=== PATIENT | male | born 1950 | race Caucasian/White ===

== ENCOUNTER 2020-01-26 11:06 | Emergency (ER) | payer BC, OTHER ==
--- OUTSIDE RECORDS SUMMARY | 2020-01-26 11:09 | XMS REPORT | Clinical Summary ---
:1950 Author Organization [facility] Address [address] [place] [address] Care Team Providers Name Role Phone BudMerlinepanchoJaime Primary Care Provider Unavailable Allergies No Known Active Allergies Medications Medication Sig Dispensed Refills Start Date End Date Status escitalopram (LEXAPRO) Take 10 mg by 0 09/22/2015 Active 20 MG tablet mouth daily. metoprolol succinate Take 50 mg by 0 09/22/2015 Active XL (TOPROL-XL) 50 MG mouth daily. 24 hr tablet zolpidem (AMBIEN) 10 Take 10 mg by 0 10/03/2015 Active mg tablet mouth nightly as needed for sleep. donepezil (ARICEPT) 23 Take 23 mg by 0 Active mg tablet mouth daily. levothyroxine Take 100 mcg by 0 Active (SYNTHROID, LEVOXYL) mouth daily. 100 mcg tablet pravastatin Take 20 mg by 0 Acti ve (PRAVACHOL) 20 MG mouth daily. tablet amLODIPine (NORVASC) Take 10 mg by 0 Active 10 mg tablet mouth daily. meloxicam (MOBIC) 7.5 Take 7.5 mg by 0 Active mg tablet mouth daily. baclofen (LIORESAL) 10 Take 10 mg by 0 Active MG tablet mouth 3 (three) times a day. dicyclomine (BENTYL) Take 1 tablet 20 tablet 0 01/26/201904/2018 20 mg tablet (20 mg total) by mouth 2 (two) times a day for 10 days. ondansetron (ZOFRAN) 4 Take 1 tablet 20 tablet 0 01/26/2019 MG tablet (4 mg total) by mouth every 6 (six) hours for 5 days. Active Problems Problem Noted Date Osteochondral defect of talus 07/01/2016 Left knee pain 11/27/2015 Encounters Date Type Specialty Care Team Description 01/26/2019 Emergency Emergency Medicine Rehrer, Chevy Right low er quadrant abdominal pain (Primary Dx); DO Pete Crohn's disease without complication, unspecified gastrointestinal tract location (HCC); Chronic kidney disease, unspecified CKD stage after 01/25/2019 Surgical History Surgery Date Site/Laterality Comments KNEE ARTHROSCOPY 03/07/2010 Left - 03/06/20 11 SHOULDER ARTHROSCOPY 03/07/2009 Left - 03/06/20 10 CARDIAC PACEMAKER PLACEMENT BACK SURGERY ESOPHAGOGASTRODUODENOSCOPY 08/09/2017 N/A Proce dure: (EGD) ESOPHAGOGASTRODU ODENOSCOPY (EGD); Surgeon: Navid You MD; Location: [facility]; Service: Gastroenterology ; Laterality: N/A; errosive g astritis and hiatal hernia COLONOSCOPY 08/09/2017 N/A Procedure: COLON OSCOPY; Surgeon: Navid khanna MD; Location: [facility]; Service: Gastroe nterology; Laterality: N/A; iliitis , diverticulosis ANKLE SURGERY COLONOSCOPY N/A Procedure: COLON OSCOPY; 9 Surgeon: Navid Alcaraz MD; Location: [facility]; Service: Gastro enterology; Laterality: N/A; dd Medical History Medical History Date Comments Depression Hypertension Disease of thyroid gland GERD (gastroesophageal reflux disease) Insomnia Dementia (HCC) Hyperlipidemia Crohn's colitis (HCC) PTSD (post-traumatic stress disorder) Bradycardia Social History Tobacco Use Types Packs/Day Years Used Date Never Smoker Smokeless Tobacco: Never Used Alcohol Use Drinks/Week oz/Week Comments Yes SOCIALLY Sex Assigned at Date Recorded Not on file Last Filed Vital Signs Vital Sign Reading Time Taken Comments Blood Pressure 123/79 01/26/2019 1:17 PM PATTERN ROOM ATTENDANT Pulse 60 01/26/2019 1:17 PM PATTERN ROOM ATTENDANT Temperature 36.6 C (97.8 F) 01/26/2019 1:17 PM PATTERN ROOM ATTENDANT Respiratory Rate 16 01/26/2019 1:17 PM PATTERN ROOM ATTENDANT Oxygen Saturation 96% 01/26/2019 1:17 PM PATTERN ROOM ATTENDANT Inhaled Oxygen Concentration - - Weight 90.7 kg (200 lb) 01/26/2019 1:16 PM PATTERN ROOM ATTENDANT Height 172.7 cm (5' 8") 01/26/2019 1:16 PM PATTERN ROOM ATTENDANT Body Mass Index 30.41 01/26/2019 1:16 PM PATTERN ROOM ATTENDANT Plan of Treatment Health Maintenance Due Date Last Done Comments COLONOSCOPY SCREENING 02/02/2002 SHINGLES VACCINES (#1) 02/02/2002 65+ PNEUMOCOCCAL VACCINE (1 of 1 - PPSV23) 02/02/2017 INFLUENZA VACCINE 10/06/2019 Procedures Procedure Name Priority Date/Time Associated Comments Diagnosis CT ABDOMEN PELVIS W STAT 01/26/2019 5:00 Resu lts for this CONTRAST PM PATTERN ROOM ATTENDANT procedure are i n the results section. LACTIC ACID LEVEL, Timed 01/26/2019 4:30 Resul ts for this SEPSIS - NOW AND PM PATTERN ROOM ATTENDANT procedure a re in REPEAT 2X EVERY 3 the result s HOURS section. URINALYSIS SCREEN AND STAT 01/26/2019 4:22 Re sults for this MICROSCOPY, WITH PM PATTERN ROOM ATTENDANT procedure a re in REFLEX TO CULTURE the result s section. URINE CULTURE STAT 01/26/2019 4:22 Results fo r this PM PATTERN ROOM ATTENDANT procedure are i n the results section. ESTIMATED GFR STAT 01/26/2019 1:50 Results fo r this PM PATTERN ROOM ATTENDANT procedure are i n the results section. LACTIC ACID LEVEL, STAT 01/26/2019 1:50 Resul ts for this SEPSIS - NOW AND PM PATTERN ROOM ATTENDANT procedure a re in REPEAT 2X EVERY 3 the result s HOURS section. LIPASE LEVEL STAT 01/26/2019 1:50 Results for this PM PATTERN ROOM ATTENDANT procedure are i n the results section. COMPREHENSIVE STAT 01/26/2019 1:50 Results fo r this METABOLIC PANEL PM PATTERN ROOM ATTENDANT procedure ar e in the results section. HC COMPLETE BLD COUNT STAT 01/26/2019 1:50 Re sults for this W/AUTO DIFF PM PATTERN ROOM ATTENDANT procedure are i n the results section. after 01/25/[address] Abdomen Pelvis W Contrast (01/26/2019 5:00 PM PATTERN ROOM ATTENDANT) Specimen Narrative Performed At EXAMINATION: CT ABDOMEN PELVIS W CONTR AST HM RADIANT CLINICAL HISTORY: 68 years Male Abd pain unspecified , Nausea vomiting TECHNIQUE: Multiple axial images of the abdomen and pe lvis were obtained following intravenous administration of iodinated cont rast. Sagittal and coronal computerized reformatted images were also obta ined. CT imaging was performed with iterative reconstruction techniques and/or automated exposure co ntrol to reduce radiation dose. COMPARISON: CT from 10/31/2017 IMPRESSION: LUNG BASES: The lung bases are free of acute disease. Coronary art stefano calcification present. Pacer leads are present in the right atrium a nd right ventricle. ABDOMEN: Liver: The liver is normal. No focal mas s. Gallbladder/Biliary: The gallbladder is normal. There is no evidence of intra or extrahepatic biliary ductal dil atation. Spleen: The spleen is enlarged measuring 15 cm in length. Pancreas: Pancreas is unremarkable. Adrenal Glands: The adrenal glands are u nremarkable. Kidneys: The kidneys are unremarkable. No mass, hydron ephrosis or calculi. Vascular: There is mild atherosclerotic calcification of the abdominal aorta without aneurysm. Nodes: No enlarged retroperitoneal or me senteric lymphadenopathy. Bowel: There are scattered diverticula throughout the colon. There is no evidence of acute diverticulitis. Appendix is normal. No intestinal obstruction. Ascites/fluid collections: No ascites or fluid collections. PELVIS: Genitourinary: Prostate is enlarged and mildly elevate s the base of the bladder. The bladder is otherwise unrema rkable. Nodes: No pelvic sidewall lymphadenopath y. Ascites/other: No pelvic ascites. MUSCULOSKELETAL: Visualized osseous structures are intact. No suspiciou s osseous lesion identified. SUMMARY: 1.[id number] diffuse colonic diverticulosis with out evidence of diverticulitis. 2.Mild splenomegaly. 3.Enlarged prostate gland. Procedure Note Hm Interface, Radiology Results Incoming - 01/26/2019 5:13 PM PATTERN ROOM ATTENDANT EXAMINATION: CT ABDOMEN PELVIS W CONTRAST CLINICAL HISTORY: 68 years Male Abd pain unspecified, Nausea vomiting TECHNIQUE: Multiple axial images of the abdomen and pelvis were obtained following intravenous administration of iodinated contrast. Sagittal and coronal computerized reformatted images were also obtained. CT imaging was performed with iterative reconstruction techniques and/or automat ed exposure control to reduce radiation dose. COMPARISON: CT from 10/31/2017 IMPRESSION: LUNG BASES: The lung bases are free of acute disease . Coronary artery calcification present. Pacer leads are present in the right atrium and right ventricle. ABDOMEN: Liver: The liver is normal. No focal mas s. Gallbladder/Biliary: The gallbladder is normal. There is no evidence of intra or extrahepatic biliary ductal dilatation. Spleen: The spleen is enlarged measuring 15 cm in length. Pancreas: Pancreas is unremarkable. Adrenal Glands: The adrenal glands are u nremarkable. Kidneys: The kidneys are unremarkable. N o mass, hydronephrosis or calculi. Vascular: There is mild atherosclerotic calcification of the abdominal aorta without aneurysm. Nodes: No enlarged retroperitoneal or me senteric lymphadenopathy. Bowel: There are scattered diverticula t hroughout the colon. There is no evidence of acute diverticulitis. Appendix is normal. No intestinal obstruction. Ascites/fluid collections: No ascites or fluid collections. PELVIS: Genitourinary: Prostate is enlarged and mildly elevates the base of the bladder. The bladder is otherwise unremarkable. Nodes: No pelvic sidewall lymphadenopath y. Ascites/other: No pelvic ascites. MUSCULOSKELETAL: Visualized osseous structures are intact . No suspicious osseous lesion identified. SUMMARY: 1.Cqwx-aj-obohdejo diffuse colonic diver ticulosis without evidence of diverticulitis. 2.Mild splenomegaly. 3.Enlarged prostate gland. Performing Organization Address [facility] Phon e Number [facility] [address] [place] [address] Lactic acid level, SEPSIS - Now and repeat 2x every 3 hours (01/26/2019 4:30 PM PATTERN ROOM ATTENDANT)Only the most recent of2 resultswithin the time period is included. Pathologist [facility] nature Lactic acid 1.4 0.5 - 2.2 mmol/L [facility] Specimen Blood Performing Organization Address City/[facility] Phon e Number [facility] DEPARTMENT OF PATHOLOGY AND [address] [place] [phone] GENOMIC MEDICINE [address] [address] Urinalysis screen and microscopy, with reflex to culture (01/26/2019 4:22 PM PATTERN ROOM ATTENDANT) Specimen site Clean catch [facility] Color, UA Yellow [facility] Appearance, UA Clear [facility] Specific gravity, UA 1.020 1.001 - 1.035 [facility] pH, UA 5.0 5.0 - 8.5 [facility] Protein, UA Negative Negative [facility] Glucose, UA Negative Negative [facility] Ketones, UA Negative Negative [facility] Bilirubin, UA Negative Negative [facility] Blood, UA Negative Negative [facility] Nitrite, UA Negative Negative [facility] Urobilinogen, UA <2.0 <2.0 [facility] Leukocyte esterase, Negative Negative [facility] Epithelial cells, UA <1 /HPF [facility] WBC, UA 1 0 - 1 /HPF [facility] RBC, UA 3 0 - 5 /HPF [facility] Bacteria, UA Few None seen [facility] Yeast, UA None seen [facility] Yeast with None seen [facility] pseudohyphae, UA HOSPITAL Specimen Urine Performing Organization Address City/[facility]/ZIP Code Phon e Number [facility] DEPARTMENT OF PATHOLOGY AND [address] [place] [address] [phone] [address] Urine culture (01/26/2019 4:22 PM PATTERN ROOM ATTENDANT) Pathologist Sig nature Urine culture SEE COMMENTComment: [facility] Bacteriuria screen HOSPITAL negative. Specimen Performing Organization Address City/[facility] Phon e Number [facility] DEPARTMENT OF PATHOLOGY AND [address] [place], [place] [phone] [address] [address] Estimated GFR (01/26/2019 1:50 PM PATTERN ROOM ATTENDANT) Estimated GFR 54 (A) mL/min/1.73 [facility] Comment: HOSPITAL Catergory Units Interpretation G1 >=90 Normal or high G2 60-89 Mildly decreased G3a 45-59 Mildly to moderately decreas ed G3b 30-44 Moderately to severely decre ased G4 15-29 Severely decreased G5 <15 Kidney failure The eGFR was calculated using the Chronic Kidney Disea se Epidemiology Collaboration (CKD-EPI) equation. Interpretation is based on recommendations of the National Kidney Foundation-Kidney Disease Outcomes Medardo lity Initiative (NKF-KDOQI) published in 2014. Specimen Plasma specimen Performing Organization Address City/[facility] Phon e Number [facility] DEPARTMENT OF PATHOLOGY AND [address] [place], [place] [phone] [address] [address] CBC with platelet and differential (01/26/2019 1:50 PM PATTERN ROOM ATTENDANT) WBC 7.71 4.50 - 11.00 [facility] RBC 5.50 4.40 - 6.00 [facility] HGB 16.3 14.0 - 18.0 [facility] g/dL [facility] HCT 48.7 41.0 - 51.0 % [facility] MCV 88.5 82.0 - 100.0 [facility] MCH 29.6 27.0 - 34.0 pg [facility] MCHC 33.5 31.0 - 37.0 [facility] g/dL HOSPITAL RDW - SD 40.2 37.0 - 55.0 fL [facility] MPV 11.3 8.8 - 13.2 fL [facility] Platelet count 253 150 - 400 k/uL [facility] Nucleated RBC 0.00 /100 WBC [facility] Neutrophils 67.9 39.0 - 69.0 % [facility] Lymphocytes 20.4 (L) 25.0 - 45.0 % [facility] Monocytes 9.3 0.0 - 10.0 % [facility] Eosinophils 1.4 0.0 - 5.0 % [facility] Basophils 0.6 0.0 - 1.0 % [facility] Immature granulocytes 0.4Comment: 0.0 - 1.0 % [facility] "[facility] granulocytes" (promyelocytes , myelocytes, metamyelocytes ) Specimen Blood Performing Organization Address City/[facility] Phon e Number [facility] DEPARTMENT OF PATHOLOGY AND [address] [place], [place] [phone] [address] [address] Lipase level (01/26/2019 1:50 PM PATTERN ROOM ATTENDANT) Pathologist Sig nature Lipase 38 13 - 60 U/L [facility] Specimen Plasma specimen Performing Organization Address City/[facility] Phon e Number [facility] DEPARTMENT OF PATHOLOGY AND [address] [place] [address] [phone] [address] Comprehensive metabolic panel (01/26/2019 1:50 PM PATTERN ROOM ATTENDANT) Sodium 139 135 - 148 [facility] mEq/L [facility] Potassium 3.9 3.5 - 5.0 [facility] mEq/L [facility] Chloride 102 98 - 112 mEq/L [facility] CO2 24 24 - 31 mEq/L [facility] Anion gap 13@ANIO 7 - 15 mEq/L [facility] BUN 11 8 - 23 mg/dL [facility] Creatinine 1.34 (H) 0.70 - 1.20 [facility] mg/dL HOSPITAL Glucose 90 65 - 99 mg/dL [facility] Calcium 9.0 8.8 - 10.2 [facility] mg/dL HOSPITAL Protein 8.0 6.3 - 8.3 g/dL [facility] Comment: HOSPITAL Ozhgrir2920.6-7.0 g/dL 1 aayk2914.4-7.6 g/dL 7 months-4jinr398.1-7.3 g/dL 1-2 jpudw093.6-7.5 g/dL >3 slakc142.0-8.0 g/dL 18-4240998.3-8.3 g/dL Albumin 3.9 3.5 - 5.0 g/dL [facility] A/G ratio 1.0 0.7 - 3.8 [facility] Alkaline phosphatase 75 40 - 129 U/L [facility] AST 25 10 - 50 U/L [facility] ALT 23 5 - 50 U/L [facility] Total bilirubin 0.9 0.0 - 1.2 [facility] mg/dL HOSPITAL Specimen Plasma specimen Performing Organization Address City/State/[facility] Code Phon e Number 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
--- OUTSIDE RECORDS SUMMARY | 2020-01-26 11:10 | XMS REPORT | Summary of Care ---
:1950 Author Name [facility] Address Unavailable Unavailable , Care Team Providers Name Role Phone DAVID Mosqueda Unavailable Unavailable MARÍA Mosqueda Unavailable Unavailable KIAH Mosqueda Unavailable Unavailable KIAH ADAME Unavailable Unavailable DAVID ADAME UT Unavailable Unavailable JOSE ELIAS ADAME Unavailable Unavailable MARK ADAME UT Unavailable Unavailable Unavailable Unavailable Unavailable Functional Status Name Dates Details Functional status health issues are not documented Status: Name Dates Details Cognitive status health issues are not documented Status: Problems Name Dates Details Hypercholesterolemia (272.0, E78.00) Sta tus: Active Left carotid bruit (785.9, R09.89) Statu s: Active Acute stress disorder (308.3, F43.0) Sta tus: Active Chest pain (786.50, R07.9) Status: Activ e Shortness of breath (786.05, R06.02) Sta tus: Active Ventricular tachycardia (427.1, I47.2) S tatus: Active 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, 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) Stat us: Active Sleep disturbances (780.50, G47.9) Statu s: Active Grieving (309.0, F43.21) Status: Active Obstructive sleep apnea (327.23, G47.33) Status: Active Acute stress disorder (308.3, F43.0) Sta tus: Active Insomnia (780.52, G47.00) Status: Active Mood disorder (296.90, F39) Status: Acti ve Memory deficits (780.93, R41.3) Status: Active Post traumatic stress disorder (PTSD) (309.81, F43.10) Status: Active 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 Refills: 0 ELIAZAR DANIEL M.D. Start : 24-Dec-2013 Active amLODIPine Besylate 10 MG Oral Tablet TAKE 0.5 TABLET Before meals Refills: 0 Active Irbesartan 75 MG Oral Tablet TAKE ONE TABLET BY MOUTH EVERY DAY Quantity: 30 Refills: 0 MALA HERNANDEZ M.D. Start : 16-Sep-2014 Active Metoprolol Succinate ER 50 MG Oral Tablet Extended Release 24 Hour TAKE ONE TABLET BY MOUTH ONCE DAILY Quantity: 90 Refills: 3 MALA HERNANDEZ M.D. Start : 03-Jun-2015 Active Tamsulosin HCl - 0.4 MG Oral Capsule TAKE 1 CAPSULE DAILY Refills: 0 Start : 04-Sep-2015 Active Levothyroxine Sodium 88 MCG Oral Tablet Refills: 0 Active Escitalopram Oxalate 20 MG Oral Tablet TAKE 1 TABLET BY MOUTH DAILY Quantity: 30 Refills: 5 KAYLA DUPONT M.D.Active Cyanocobalamin 1000 MCG/ML Injection Solution INJECT 1 ML INTRAMUSCULARLY ONCE A MONTH Quantity: 3 Refills: 1 KAYLA DUPONT M.D. Start : 20-Jun-2018 Active Donepezil HCl - 23 MG Oral Tablet TAKE 1 TABLET BEDTIME Quantity: 30 Refills: 4 KAYLA DUPONT M.D. Start : 09-Jun-2017 Active Allergies and Adverse Reactions Name Dates Details No Known Drug Allergies (Allergy) Status : Active Procedures Procedure Dates Details Procedures not documented Immunization Name Dates Details Immunizations not documented Social History Name Dates Details - Status: Name Dates Details Never smoked tobacco (finding) Vital Signs Date Test Result Details [id number] Systolic blood pressure 124 mm[Hg] Status: Comments: Location: LUE; Position: Sitting Diastolic blood pressure 87 mm[Hg] Status: Comment s: Location: LUE; Position: Sitting Body height 68 in Status: Weight 210.25 lb Status: Body mass index (BMI) [Ratio] 31.97 kg/m2 Status: Body surface area Derived from formula 2.09 m2 S tatus: Body temperature 97.6 f Status: Comments: Me thod: Tympanic Heart Rate 69 /min Status: Comments: Lo cation: L Radial; Results Date Description Value Details Results not documented Plan of Care Name Dates Details Planned Observations Planned Goals not documented Planned Encounters Appointment; MALA HERNANDEZ M.D. On: 27-Oct-2020 12 :20 Instructions Name Dates Details Instructions not documented Encounters Appointment; KAYLA DUPONT M.D. On: 22-Feb-2018 10:0 0 Encounter Diagnosis: Problem not documented Appointment; MALA HERNANDEZ M.D. On: 24-Feb-2018 13 :00 Encounter Diagnosis: Problem not documented Appointment; KAYLA DUPONT M.D. On: 14-Jun-2018 14:3 0 Encounter Diagnosis: Problem not documented Appointment; VIJAY FREGOSO, PHD On: 02-Nov-2018 8 :30 Encounter Diagnosis: Problem not documented Appointment; KAYLA DUPONT M.D. On: 30-Nov-2018 14:3 0 Encounter Diagnosis: Problem not documented Appointment; MALA HERNANDEZ M.D. On: 05-Feb-2019 16: 20 Encounter Diagnosis: Problem not documented Appointment; NETTA MOCTEZUMA M.D. On: 06-Mar-2019 9: 15 Encounter Diagnosis: Problem not documented Appointment; NETTA MOCTEZUMA M.D. On: 28-Mar-2019 15 :15 Encounter Diagnosis: Problem not documented Appointment; MALA HERNANDEZ M.D. On: 29-Oct-2019 16 :00 Encounter Diagnosis: Problem not documented
--- OUTSIDE RECORDS SUMMARY | 2020-01-26 11:10 | XMS REPORT | Continuity of Care Document ---
:1950 Author Organization [facility] t Address [address] [place] [address] Care Team Providers Name Role Phone AUNDREA Primary Care Physician Unavailable DAVID Attending Clinician Unavailable BRENDAN Attending Clinician Unavailable Aundrea ADAME Attending Clinician AUNDREA Attending Clinician Unavailable Felipe MILLER, E Attending Clinician Unavailable Julia Pandey MD Attending Clinician Joyce ADAME Attending Clinician JOSE ELIAS Attending Clinician Unavailable DanisrePete torres DO Attending Clinician KIAH Attending Clinician Unavailable ILDEFONSO Attending Clinician Unavailable Payers Payer Name Policy Type Policy Effective Date Expiration Date Sour ce Number MEDICARE PART A AND B [id number] 2010 00:00:[place] [id number] 2018 2019 00:00:00 00:00:00 MEDICAREMEDICARE PART [id number] 2010 Reynaldo Pickard AND 00:00:00 Yazidi [id number] 2010- MARIA G Richmond[place] OUT OF [id number] 2015 [id number] 7 00:00:00 Met ramos 2015-PPO Problems Condition Condition Condition Status Onset Resolution Last Treating Co mments Source Name Details Category Date Date Treatment Clinician Date Osteochond Osteochond Disease Active [place]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 4-27 Me [place] [facility] 00 Left knee Left knee Disease Active Hans ston pain pain 9- Methodi 00:00: st 00 Hyperchole Hyperchole Problem Active U nivers sterolemia sterolemia it y of [place] Physici ans Left Left Problem Active Univers carotid carotid ity of bruit bruit [place] [facility] Acute Acute Problem Active Univers stress stress ity of disorder disorder [place] [facility] Chest pain Chest pain Problem Active U nivers ity of [place] [facility] Shortness Shortness Problem Active Uni vers of breath of breath ity of [place] [facility]ici [facility] Ventricula Ventricula Problem Active U nivers r r ity of tachycardi tachycardi [place] Physici ans Intracrani Intracrani Problem Active U nivers al abscess al abscess it y of [place] [facility] Sleep Sleep Problem Active Univers disturbanc disturbanc it y of es es [place] [facility] Grieving Grieving Problem Active Unive rs ity of [place] Physici [facility] Obstructiv Obstructiv Problem Active U nivers e sleep e sleep ity of apnea apnea [place] [facility] Insomnia Insomnia Problem Active Unive rs [place]y of [place] [facility] Mood Mood Problem Active Univers disorder disorder [facility] of [place] [facility] Memory Memory Problem Active Univers deficits deficits [facility]y of [place] [facility] Post Post Problem Active Univers traumatic traumatic ity of stress stress [place] disorder disorder Physic i (PTSD) (PTSD) ans 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 ity of [place] [facility] Vitamin Vitamin Problem Active Univers B12 B12 [place] of deficiency deficiency [place] [facility] 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 Social History Social Habit Start Date Stop Date Quantity Comments Source Sex Assigned At M MD Delong on Tobacco use and 2019-06-27 2019-06-27 Never used MD Delong on exposure 00:00:00 00:00:00 Alcohol intake 2019-06-27 2019-06-27 Current drinker MD Sultana bee 00:00:00 00:00:00 of alcohol (finding) Alcohol Comment 2019-06-27 2019-06-27 1-2 times a week MD Barrera 00:00:00 00:00:00 Smoking Status Start Date Stop Date Source Never smoker MD Barrera Medications Ordered Filled Start Stop Current Ordering Indication Dosage Frequency Signature Comments Components Source Medication Medication Date Date Medication? Clinician (SIG) Name Name levothyroxi Yes 100ug Take 100 M D ne 4-22 mcg by Anderso (SYNTHROID, 13:46: mouth. n LEVOTHROID) 17 100 mcg tablet olmesartan Yes 20mg Take 20 mg M D (BENICAR) 06-26 by mouth Baljeet o 20 mg 13:46: daily. n tablet 17 fluorouraci 2020- No Actinic Apply M D l (Efudex) 06-26 05-07 keratosis topically Anderso 5% cream 00:00: 04:59 to n 00 :00 affected area(s) twice daily for 14 days. Use on the scalp and forehead dicyclomine 2018-03- No 20mg Q.5D Take 1 [place] (BENTYL) 20 - 12-02 tablet (20 M ethodi mg tablet 00:00: 23:59 mg total) st 00 :00 by mouth 2 (two) times a day for 10 days. ondansetron 2018-03- No 4mg Q6H Take 1 [place] (ZOFRAN) 4 03-28 11-27 tablet (4 Met hodi MG tablet 00:00: 23:59 mg total) st 00 :00 by mouth every 6 (six) hours for 5 days. amLODIPine Yes 5mg 5 mg. (NORVASC) 8- Anderso 10 mg 00:00: n tablet 00 donepezil 2018- Yes 23mg QD Take 23 mg [place] (ARICEPT) 7-26 by mouth Method i 23 mg 16:58: daily. st tablet 23 levothyroxi 2018- Yes 100ug QD Take 100 [place] ne 7-26 mcg by Methodi (SYNTHROID, 16:58: mouth st LEVOXYL) 23 daily. 100 mcg tablet pravastatin Yes 20mg QD Take 20 mg Singletary (PRAVACHOL) 7-26 by mouth Meth alyssa 20 MG 16:58: daily. st tablet 23 amLODIPine Yes 10mg QD Take 10 mg [place] (NORVASC) 7-26 by mouth Method i 10 mg 16:58: daily. st tablet 23 meloxicam Yes 7.5mg QD Take 7.5 [place] (MOBIC) 7.5 7-26 mg by Methodi mg tablet 16:58: mouth st 23 daily. baclofen Yes 10mg [id number] Take 10 mg Singlet[place] (LIORESAL) 7-26 [id number] by mouth 3 Methodi 10 MG 16:58: 3D (three) st tablet 23 times a day. Cyanocobala Cyanocobala Yes KAYLA INJECT 1 Univers min 1000 min 1000 4-16 DUPONT M.D. ML i ty of MCG/ML MCG/ML 00:00: INTRAMUSCU [place] as Injection Injection 00 LARLY ONCE Physici Solution Solution A MONTH ans Donepezil Donepezil Yes KAYLA 1 TAKE 1 Univers HCl - 23 MG HCl - 23 MG 4-05 DUPONT M.D. TABLET ity of Oral Tablet Oral Tablet 00:00: BEDTIME [place] 00 Physici ans zolpidem Yes 10mg QD Take 10 mg [place] (AMBIEN) 10 7-29 by mouth Meth alyssa mg tablet 00:00: nightly as st 00 needed for sleep. escitalopra Yes 10mg QD Take 10 mg Singletary m (LEXAPRO) 7-18 by mouth Meth alyssa 20 MG 00:00: daily. st tablet 00 metoprolol Yes 50mg QD Take 50 mg [place] succinate 7-18 by mouth Method i XL 00:00: daily. st (TOPROL-XL) 00 50 MG 24 hr tablet metoprolol Yes 50mg Take 50 mg M D succinate 7-18 by mouth. Nirva so (TOPROL XL) 00:00: n 50 mg 24 hr 00 tablet Tamsulosin Tamsulosin Yes 1 QD TAKE 1 Univers HCl - 0.4 HCl - 0.4 6-30 CAPSULE it y of MG Oral MG Oral 00:00: DAILY [place] Capsule Capsule 00 Physici ans Metoprolol Metoprolol Yes MALA TAKE ONE Univers Succinate Succinate 3-29 HERNANDEZ TABLET BY ity of ER 50 MG ER 50 MG 00:00: M.D. MOUTH ONCE [place] Oral Tablet Oral Tablet 00 DAILY Physici Extended Extended ans Release 24 Release 24 Hour Hour Irbesartan Irbesartan Yes MALA QD TAKE ONE Univers 75 MG Oral 75 MG Oral 7-13 HERNANDEZ TABLET BY ity of Tablet Tablet 00:00: M.D. MOUTH [place] 00 EVERY DAY Physici ans zolpidem Yes 10mg Take 10 mg MD (AMBIEN) 10 4-01 by mouth. And erso mg tablet 00:00: n 00 Zolpidem Zolpidem 2013-03 Yes ELIAZAR DANIEL TAKE 1 Univers Tartrate 10 Tartrate 10 0-20 M.D. TABLET AT ity of MG Oral MG Oral 00:00: BEDTIME. [place] as Tablet Tablet 00 Physici ans amLODIPine amLODIPine Yes .5 TAKE 0.5 Univers Besylate 10 Besylate 10 TABLET ity of MG Oral MG Oral Before [place] Tablet Tablet meals Physici ans Levothyroxi Levothyroxi Yes U nivers ne Sodium ne Sodium ity o f 88 MCG Oral 88 MCG Oral [place] Tablet Tablet Physici ans Escitalopra Escitalopra Yes KAYLA TAKE 1 Univers m Oxalate m Oxalate DUP[place] M.D. TABLET BY ity of 20 MG Oral 20 MG Oral MOUTH [place] Tablet Tablet DAILY Physici ans Vital Signs Vital Name Observation Time Observation Value Comments Source Systolic blood 2019-10-29 124 mm[Hg] Location: [facility] 16::00 Position: [place] Physician s Sitting Diastolic blood 2019-10-29 87 mm[Hg] Location: [facility] 16::00 Position: [place] Physician s Sitting Body height 2019-10-29 68 [in_us] [facility] :: [place] Physician s Weight 2019-10-29 210.25 [lb_av] [facility] :: [place] Physician s Body mass index 2019-10-29 31.97 kg/m2 [place] o f (BMI) [Ratio] 16::00 Lisette Philip Body temperature 2019-10-29 97.6 [degF] Method: [facility] 16:01:00 Tympanic [place] Physician s Heart Rate 2019-10-29 69 /min Location: [facility] 16:01:00 Radial; [place] Physician s Systolic blood 2019-06-27 142 mm[Hg] MD Barrera pressure 15:40:33 Diastolic blood 2019-06-27 91 mm[Hg] MD Barrera pressure 15:40:33 Heart rate 2019-06-27 59 /min MD Barrera 15:40:33 Body temperature 2019-06-27 36.39 Rachael MD Barrera 15:40:33 Respiratory rate 2019-06-27 16 /min MD Barrera 15:40:33 Oxygen saturation 2019-06-27 95 /min MD Akanksha riley in Arterial blood 15:40:33 by Pulse oximetry Body height 2019-06-27 170.5 cm MD Barrera 13:38:44 Body weight 2019-06-27 95.3 kg MD Barrera 13:38:44 BMI 2019-06-27 32.78 kg/m2 MD Barrera 13:38:44 BP Systolic 2019-03-06 123 mm[Hg] Location: [facility] 09:25:00 Position: [place] Physician s Sitting BP Diastolic 2019-03-06 79 mm[Hg] Location: [facility] 09:25:00 Position: [place] Physician s Sitting Height 2019-03-06 68 [in_us] [facility] 09:25:00 [place] Physician s Weight 2019-03-06 197.2 [lb_av] [facility] 09:25:00 [place] Physician s Body Mass Index 2019-03-06 29.98 kg/m2 University o f Calculated 09:25:00 [place] Physician s Temperature 2019-03-06 98.2 [degF] Method: Oral [facility] 09:25:00 [place] Physician s Heart Rate 2019-03-06 67 /min [facility] 09:25:00 [place] Physician s Systolic blood 2019-01-26 123 mm[Hg] [place] pressure 13:17:21 Yazidi Diastolic blood 2019-01-26 79 mm[Hg] [place] pressure 13:17:21 Yazidi Heart rate 2019-01-26 60 /min [place] 13:17:21 Yazidi Body temperature 2019-01-26 36.56 Rachael [place] 13:17:21 Yazidi Respiratory rate 2019-01-26 16 /min [place] 13:17:21 Yazidi Oxygen saturation 2019-01-26 96 /min [place] in Arterial blood 13:17:21 Yazidi by Pulse oximetry Body height 2019-01-26 172.7 cm [place] 13:16:00 Yazidi Body weight 2019-01-26 90.719 kg [place] 13:16:00 Yazidi BMI 2019-01-26 30.41 kg/m2 [place] 13:16:00 Yazidi BP Systolic 2018-11-30 113 mm[Hg] Location: [facility] 14:51:00 Position: [place] Physician s Sitting BP Diastolic 2018-11-30 69 mm[Hg] [facility] 14:51:00 Position: [place] Physician s Sitting Height 2018-11-30 68 [in_us] University 14:51:00 [place] Physician s Weight 2018-11-30 207.6 [lb_av] [facility] 14:51:00 [place] Physician s Body Mass Index 2018-11-30 31.57 kg/m2 University o f Calculated 14:51:00 [place] Physician s Heart Rate 2018-11-30 61 /min [facility] 14:51:00 [place] Physician s Respiration Rate 2018-11-30 17 /min [facility] 14:51:00 [place] Physician s BP Systolic 2017-10-12 120 mm[Hg] [facility] 10:30:00 Position: [place] Physician s Sitting BP Diastolic 2017-10-12 87 mm[Hg] Location: [facility] 10:30:00 Position: [place] Physician s Sitting Height 2017-10-12 68 [in_us] University 10:30:00 [place] Physician s Weight 2017-10-12 206 [lb_av] University 10:30:00 [place] Physician s Body Mass Index 2017-10-12 31.32 kg/m2 University o f Calculated 10:30:00 [place] Physician s Heart Rate 2017-10-12 68 /min University of 10:30:00 [place] Physician s BP Systolic 2017-06-09 123 mm[Hg] University of 10:31:00 [place] Physician s BP Diastolic 2017-06-09 77 mm[Hg] University of 10:31:00 [place] Physician s Height 2017-06-09 68 [in_us] University of 10:31:00 [place] Physician s Weight 2017-06-09 214 [lb_av] University 10:31:00 [place] Physician s Body Mass Index 2017-06-09 32.54 kg/m2 University o f Calculated 10:31:00 [place] Physician s Heart Rate 2017-06-09 62 /min [facility] :31:00 [place] Physician s BP Systolic 2017-02-25 114 mm[Hg] Location: [facility]; [facility] :: Position: [place] Physician s Sitting BP Diastolic 2017-02-25 73 mm[Hg] Location: [facility]; [facility] :: Position: [place] Physician s Sitting Height 2017-02-25 68 [in_us] University 12:31:00 [place] Physician s Weight 2017-02-25 219 [lb_av] University :31:00 [place] Physician s Body Mass Index 2017-02-25 33.3 kg/m2 University o f Calculated 12:31:00 [place] Physician s Heart Rate 2017-02-25 60 /min [facility] :: [place] Physician s Respiration Rate 2017-02-25 18 /min Quality: Normal Universi of 12:31:00 [place] Physician s BP Systolic 2017-02-08 124 mm[Hg] University 09:31:00 [place] Physician s BP Diastolic 2017-02-08 84 mm[Hg] [facility] 09:31:00 [place] Physician s Weight 2017-02-08 210 [lb_av] University 09:31:00 [place] Physician s Body Mass Index 2017-02-08 31.93 kg/m2 University o f Calculated 09:31:00 [place] Physician s Respiration Rate 2017-02-08 18 /min [facility] :31:00 [place] Phys[facility] s Heart Rate 2017-02-08 61 /min [facility] 09:31:00 [place] Phys[facility] s Procedures Procedure Date / Time Performing Clinician Source Performed SURGICAL BIOPSY HISTORIC 2019-06-27 17:00:00 William, MD Barrera Pathology PATHOLOGY BIOPSY SPECIMEN 2019-06-27 14:37:00 Vero Guillaume INTERPRETATION PA MOHS, 1 STAGE, 2019-06-27 13:15:00 Vero Guillaume MD Baljeet on HEAD/NECK/HAND/FEET/GENTI AL OUTSIDE REFERRAL 2019-05-15 00:00:00 System, Provider Not And erson In OUTSIDE REFERRAL HISTORIC 2019-04-23 18:00:00 MD Bruce Thomas Pathology CT ABDOMEN PELVIS W 2019-01-26 17:00:21 Babs Rubio CONTRAST Ololade LACTIC ACID LEVEL, SEPSIS 2019-01-26 16:30:00 Armando Nash - NOW AND REPEAT 2X EVERY 3 HOURS URINE CULTURE 2019-01-26 16:22:00 Armando Nash ethodi URINALYSIS SCREEN AND 2019-01-26 16:22:00 Armando Nash MICROSCOPY, WITH REFLEX TO CULTURE HC COMPLETE BLD COUNT 2019-01-26 13:50:00 Armando Nash W/AUTO DIFF COMPREHENSIVE METABOLIC 2019-01-26 13:50:00 Armando Nash PANEL LIPASE LEVEL 2019-01-26 13:50:00 Armando Nash ethodist LACTIC ACID LEVEL, SEPSIS 2019-01-26 13:50:00 Armando Nash - NOW AND REPEAT 2X EVERY 3 HOURS ESTIMATED GFR 2019-01-26 13:50:[address] Brain wo contrast 2017-02-22 00:00:00 [facility] [id number] Physicians Plan of Care Planned Activity Planned Date Details Comments Source Future Scheduled 2019-10-06 INFLUENZA VACCINE [place] Test 00:00:00 [code = INFLUENZA VACCINE] Diagnostic Test 2017-02-22 CT Brain wo contrast [facility] Pending 00:00:00 [id number] [code = 60860] Physici ans Future Scheduled 2017-02-02 65+ PNEUMOCOCCAL [place] Yazidi Test 00:00:00 VACCINE (1 of 1 - PPSV23) [code = 65+ PNEUMOCOCCAL VACCINE (1 of 1 - PPSV23)] Future Scheduled 2002-02-02 COLONOSCOPY SCREENING jayne Yazidi Test 00:00:00 [code = COLONOSCOPY SCREENING] Future Scheduled 2002-02-02 SHINGLES VACCINES [place] [facility] Test 00:00:00 (#1) [code = SHINGLES VACCINES (#1)] Future Appointment 2020-10-27 Panda MEDEIROS [facility] 12:20:00 Bernarda HERNANDEZ Encounters Start End Encounter Admission Attending Care Care Encounter Source Date/Time Date/Time Type Type Clinicians Facility Department ID 2019-10-29 2019-10-29 Appointmen DYLAN HERNANDEZ Cardiology [id number] [facility] 16:00:00 16:00:00 [facility] [place] Arben Mosqueda ans 2019-10-04 2019-10-04 Outpatient MICHAEL VILLARREAL MDA MDA [id number] 00:00:00 00:00:00 Baljeetjaquan riley 2019-06-27 2019-06-27 Outpatient ANA PAULA GUILLAUME MDA MDA [id number] 08:14:13 08:14:25 VERO riley 2019-03-28 2019-03-28 AppointDYLAN Roche [facility] [id number] Univers 15:15:00 15:15:00 t; NETTA MOCTEZUMA, i ty of [facility] 2019-03-06 2019-03-06 DYLAN Amezcua Otorhinolar [id number] Univers 09:15:00 09:15:00 t; NETTA MOCTEZUMA, yngology - ity of Panda [facility] Physici [facility] 2019-03-04 2019-03-04 Emergency E [facility] [id number] [facility] 12:18:00 12:18:00 2019-02-05 2019-02-05 DYLAN Phelps [facility] [id number] Univers 16:20:00 16:20:00 t; Panda MEDEIROS it y of DAVID [place] Arben MEDEIROS M.D. [facility] 2019-01-21 2019-01-21 Emergency E MHNE MHNE [id number] MHNE 16:32:00 16:32:00 2018-11-30 2018-11-30 DYLAN Aguilar Neurology - [id number] Univers 14:30:00 14:30:00 t; KAYLA DUPONT [place] ity of [place], M.D. [facility] [place] Physic ans 2018-11-02 2018-11-02 DYLAN Barnard [facility] [id number] Univers 08:30:00 08:30:00 t; Marine LINARES, PHD Tenzin Dunn ci PHD ans 2018-06-14 2018-06-14 DYLAN Aguilar Neurology [id number] Univers 14:30:00 14:30:00 t; KAYLA DUPONT ity of [place], M.D. [facility] ans 2018-02-24 2018-02-24 Appointrosa HERNANDEZ [facility] [id number] Univers 13:00:00 13:00:00 t; Panda MEDEIROS [place] DAVID, Physici M.D. ans 2018-02-22 2018-02-22 AppointDYLAN Caputo Neurology [id number] Univers 10:00:00 10:00:00 t; KAYLA DUPONT ity of [place], M.D. [place] Anupam Physici ans 2017-10-12 2017-10-12 AppointDYLAN Caputo Neurology [id number] Univers 10:00:00 10:00:00 t; KAYLA DUPONT ity of [place], M.D. [place] Anupam Physici ans 2017-06-09 2017-06-09 AppointDYLAN Caputo Neurology [id number] Univers 10:00:00 10:00:00 t; KAYLA DUPONT ity of [place], M.D. [place] Brandi Physici ans 2017-02-25 2017-02-25 [facility] [place] [id number] Univers 12:00:00 12:00:00 t; Panda MEDEIROS Specialty [place] Arben MEDEIROS M.D. ans 2017-02-08 2017-02-08 AppointDYLAN Caputo Neurology [id number] Univers 09:30:00 09:30:00 t; KAYLA DUPONT ity of [place], M.D. [place] M.D. Physici ans 2017-02-07 2017-02-07 AppointDYLAN Caputo [facility] [id number] Univers 11:30:00 11:30:00 t; KAYLA DUPONT ity of [place], M.D. [place] M.D. Physici ans 2016-10-07 2016-10-07 AppointDYLAN Caputo [facility] [id number] Univers 15:30:00 15:30:00 t; KAYLA DUPONT ity of [place], M.D. [place] M.D. Physici ans 2015-11-28 2015-11-28 Appointmen DAVID [facility] [id number] Univers 12:40:00 12:40:00 t; Panda MEDEIROS y of DAVID [place] Arben MEDEIROS M.D. ans 2015-10-03 2015-10-03 Appointmen DAVID [facility] [id number] Univers 15:40:00 15:40:00 t; Panda MEDEIROS y of DAVID [place] Arben MEDEIROS M.D. ans 2015-09-04 2015-09-04 [facility] KIAH [facility] Neurology [id number] Univers 10:30:00 10:30:00 t; KAYLA DUPONT ity of [place], M.D. [place] M.D. Physici ans 2015-07-18 2015-07-18 [facility] [id number] Univers 11:40:00 11:40:00 t; Panda MEDEIROS y of [place] HERNANDEZ Physici M.D. ans 2015-04-02 2015-04-02 [facility] [id number] Univers 14:30:00 14:30:00 t; KAYLA DUPONT ity of [place], M.D. [place] Panda Physic ans Results Test Test Test Results Result Source Description Time Comments Comments Mohs-assisted 2019-06- Vero Guillaume MD MD Bruce excision, basal 22 06/28/2019 10:09 AM cell carcinoma, 13:15:00 Mohs-assisted excision, right posterior basal cell carcinoma, neck right posterior neckDate/Time: 06/27/2019 9:35 AM SurgeonAuthorized by: Vero Guillaume MD Performed by: LOBITO Germanupervising Surgeon: Vero Guillaume MD LocationLocation: Right posterior neck DiagnosisPre-operative diagnosis: Basal cell carcinomaBasal cell carcinoma: NodularPost-operative diagnosis: unchangedLesion SizePreoperative size: 1.3 x 1.3 cmPostoperative size (lesion + margin): 1.5 x 1.5 cm StagesTotal number of stages: 1Complete tumor excision achieved: yes Permanent Pathology SubmittedPermanent Pathology Submitted: yes (permanent processing)Permanent processing: Mohs debulk Indications for MohsIndications for Mohs: Poorly defined tumor margins AnesthesiaAnesthesia method: Local infiltrationLocal anesthetic: Lidocaine 1% with epinephrine 1:100,000 (buffered)Anesthetic total (ml): 5Preoperative/Intraoperati ve MedicationsPreop/Intraop medications: See MAR for detailsSurgical PrepSurgical prep: ChlorhexidineProcedure DetailsDuring discussion of the treatment options available, based on the patient's diagnosis, it was explained to the patient that the Mohs procedure was the most appropriate treatment for the patient's lesion. The risks and benefits of the Mohs procedure and repair procedure were explained to the patient. Upon obtaining informed consent, the patient was positioned to achieve maximum access to the operative site. A wide margin surrounding the lesion was prepped and draped in the normal sterile fashion. Local anesthesia was administered. The [place] Protocol was completed. The discernible tumor was excised as a horizontal layer with the Mohs technique. Hemostasis was obtained and patient was bandaged. The tissue was precisely mapped, marked, grossly sectioned and submitted for fresh-frozen, horizontal processing. Hematoxylin and eosin-stained histologic sections were evaluated by the surgeon. This process was repeated until the end of the procedure. Tumor HistologySignificant histologic findings were present in stages 1 through 1 (normal skin). Case: [id number] Stage 1:No tumor was present at the margin of the sections evaluatedTotal number of sections: 1 Procedure Details: Repair Primary repairAfter the risks, benefits, and alternatives to primary and secondary intention healing were discussed with the patient, the patient elected to undergo a primary repair. A primary repair was indicated to restore normal function and tissue contours. Standing cone defects were removed as were appropriate. Intermediate layered linear repairOne or more deeper layers of subcutaneous tissue and superficial (non-muscle) fascia in addition to the skin (epidermal and dermal) closure was performed to create a intermediate layered linear repair.Length of repair: 2.4 cm Repair MaterialsRepair materials: Deep/dermal and superficial/epidermalSutur e size (deep/dermal): 4-0Suture type (deep/dermal): VicrylSuture size (superficial/epidermal): 4-0Other adhesive(s): Cyanoacrylate tissue adhesiveBandageBandage: Pressure dressingEstimated Blood LossEstimated blood loss: Minimal ComplicationsComplications : None Patient DispositionPatient disposition: Discharge to homeDischarge MedicationsDischarge medications: See MAR for detailsCommentsFollow-up with general dermatology. [facility]anda [facility] [id number] [facility], [address] [place] [id number] Urinalysis screen and microscopy, with reflex to culture 11-15-21 17:47:12 Test Item Value Reference Range Interpretation Comme nts Specimen site (test code = 6548182) Clean catch Color, UA (test code = 5778-6) Yellow Appearance, UA (test code = 5767-9) Clear Specific gravity, UA (test code = 5811-5) 1.020 1.001-1.035 pH, UA (test code = 5803-2) 5.0 5.0-8.5 Protein, UA (test code = 40925-9) Negative Negative Glucose, UA (test code = 59970-1) Negative Negative Ketones, UA (test code = 2514-8) Negative Negative Bilirubin, UA (test code = 5770-3) Negative Negative Blood, UA (test code = 5794-3) Negative Negative Nitrite, UA (test code = 5802-4) Negative Negative Urobilinogen, UA (test code = 63197-0) <2.0 <2.0 Leukocyte esterase, UA (test code = 5799-2) Negative Negative Epithelial cells, UA (test code = 5787-7) <1 /HPF WBC, UA (test code = 5821-4) 1 0- 1 /HPF RBC, UA (test code = 09283-4) 3 0- 5 /HPF Bacteria, UA (test code = 90371-4) Few None seen Yeast, UA (test code = 28205-9) None seen Yeast with pseudohyphae, UA (test code = 15884-7) None seen Hayder Landry [id number] 17:28:36 Test Item Value Reference Range Interpretation Comments Urine culture (test SEE COMMENT Bacteriu alejandro screen code = 0718584) negative. Hayder DonahueistLactic acid level, SEPSIS - Now and repeat 2x every 3 hours 2019-01-26 17:10:22 Test Item Value Reference Range Interpretation Comments Lactic acid (test code = 83607-1) 1.4 mmol/L 0.5-2.2 [place] W [id number] 17:09:59Hm Interface, Radiology Results 01/26/2019 5:13 PM CSTEXAMINATION: CT ABDOMEN PELVIS W CONTRASTCLINICAL HISTORY: 68 years Male Abd pain unspecified, Nausea vomitingTECHNIQUE: Multiple axial images of the abdomen and pelvis were obtained following intravenous administration of iodinated contrast. Sagittal and coronal computerized reformatted images were also obtained. CT imaging was performed with iterative reconstruction techniques and/or automated exposure control to reduce radiationdose. COMPARISON: CT from 10/31/2017 IMPRESSION:LUNG BASES:The lung bases are free of acute disease.Coronary artery calcification present. Pacer leads are present in the right atrium and right ventricle.ABDOMEN:Liver: The liver is normal. No focal mass.Gallbladder/Biliary: The gallbladder is normal. There is no evidence of intra or extrahepatic biliary ductal dilatation.Spleen: The spleen is enlarged measuring 15 cm in length. Pancreas: Pancreas is unremarkable.Adrenal Glands: The adrenal glands are unremarkable.Kidneys: The kidneys are unremarkable. No mass, hydronephrosis or calculi.Vascular: There is mild atherosclerotic calcification of the abdominal aorta without aneurysm.Nodes: No enlarged retroperitoneal or mesenteric lymphadenopathy.Bowel: There are scattered diverticula throughout the colon. There is no evidence of acute diverticulitis. Appendix is normal. No intestinal obstruction. Ascites/fluid collections: No ascites or fluid collections.PELVIS:Genitourinary: Prostate is enlarged and mildly elevates the base of the bladder. The bladder is otherwise unremarkable.Nodes: No pelvic scout ewall lymphadenopathy.Ascites/other: No pelvic ascites.MUSCULOSKELETAL: Visualized osseous structures are intact. No suspicious osseous lesion identified.SUMMARY:1.Yvmw-bx-rzycapex diffuse colonic diverticulosis without evidence of diverticulitis.2.Mild splenomegaly.3.Enlarged prostate gland.[facility] [id number] 15:45:10 Test Item Value Reference Range Interpretation Comments Sodium (test code = 139 135- 148 mEq/L 2951-2) Potassium (test code = 3.9 3.5- 5.0 mEq/L 2823-3) Chloride (test code = 102 98- 112 mEq/L 2075-0) CO2 (test code = 2027-) 24 24- 31 mEq/L Anion gap (test code = 13@ANIO 7- 15 mEq/L 38875-7) BUN (test code = 3094-0) 11 mg/dL 8-23 Creatinine (test code = 1.34 mg/dL 0.7-1.2 H 2160-0) Glucose (test code = 90 mg/dL 65-99 2345-7) Calcium (test code = 9.0 mg/dL 8.8-10.2 32347-6) Protein (test code = 8.0 g/dL 6.3-8.3 9994.6-7.0 2885-2) g/dL1 hqjy6838.4-7.6 g/dL7 months-7tjar368 .1- 7.3 g/dL1-2 .6-7.5 g/dL>3 fivow438.0-8.0 g/nT85-2315233. 3-8 .3 g/dL Albumin (test code = 3.9 g/dL 3.5-5 1751-7) A/G ratio (test code = 1.0 0.7-3.8 1759-0) Alkaline phosphatase 75 U/L 40-129 (test code = 6768-6) AST (test code = 1920-8) 25 U/L 10-50 ALT (test code = 1742-6) 23 U/L 5-50 Total bilirubin (test 0.9 mg/dL 0-1.2 code = 1974-) Lab Interpretation (test Abnormal code = 23954-9) [facility] [id number] 15:45:10 Test Item Value Reference Range Interpretation Comments Lipase (test code = 3040-3) 38 U/L 13-60 [facility] MethodistEstimated [id number] 15:45:10 Test Item Value Reference Range Interpretation Comments Estimated GFR (test 54 mL/min/1.73 m2 Neeraj mas Units code = 5488) InterpretationG 1 >=90 Shameka l or highG2 60-89 Mildly decrease dG3a 45-59 Mil dly to moderately decr ryynpD7a 30-44 Moderately to s everely decreasedG4 15-29 Severe ly decreasedG5 <15 Kidney berna lureThe eGFR was calcul ated using the Chron Kidney Disease Epidemiology Collaboration ( CKD-EPI) equation. Interpretation is based on recommendati ons of the National [facility]Kidn ey Disease Outcome s Quality Initiat gino (NKF-KDOQI) pub lished in 2013. Lab Interpretation Abnormal (test code = 69435-2) [facility] MethodistCBC with platelet and [id number] 15:11:55 Test Item Value Reference Range Interpretation Comments WBC (test code = 45895-3) 7.71 4.50- 11.00 k/uL RBC (test code = 10029-1) 5.50 m/uL 4.4-6 HGB (test code = 718-7) 16.3 g/dL 14-18 HCT (test code = 4544-3) 48.7 % 41-51 MCV (test code = 787-2) 88.5 fL 82-100 MCH (test code = 785-6) 29.6 pg 27-34 MCHC (test code = 786-4) 33.5 g/dL 31-37 RDW - SD (test code = 40.2 fL 37-55 34172-5) MPV (test code = 59225-8) 11.3 fL 8.8-13.2 Platelet count (test code 253 150- 400 k/uL = 27269-8) Nucleated RBC (test code 0.00 /100 WBC = 06087-1) Neutrophils (test code = 67.9 % 39-69 31469-6) Lymphocytes (test code = 20.4 % 25-45 L 16337-8) Monocytes (test code = 9.3 % 0-10 85202-9) Eosinophils (test code = 1.4 % 0-5 36481-5) Basophils (test code = 0.6 % 0-1 89688-2) Immature granulocytes 0.4 % 0-1 "Immat ure (test code = 70506-3) granul ocytes" (promyelocytes, myelocytes, metamyelocytes) Lab Interpretation (test Abnormal code = 91882-0) Hayder Yazidi[[facility]] FOLATE, [id number] 16:03:01 Test Item Value Reference Range Interpretation Comments Folate Level (test code = 2284-8) 15.1 ng/ml >=3.0 [facility]] T3 [id number] 16:03:01 Test Item Value Reference Range Interpretation Comments T3 Uptake (test code = 3050-2) 37 % 31-39 [facility]] T4, TOTAL (THYROXINE)2018-06-14 16:03:01 Test Item Value Reference Range Interpretation Comments Thyroxine (test code = 3026-2) 8.8 ug/dL 4.7-13.3 [facility]] TSH, 3RD [id number] 16:03:01 Test Item Value Reference Range Interpretation Comments TSH (test code = 83521-8) 1.490 {uIU/ml} 0.360-3.740 [facility]] VITAMIN [id number] 16:03:01 Test Item Value Reference Range Interpretation Comments Vitamin B12 Level (test code = 391 pg/ml 254-1320 2132-9) [facility][] Free Thyroxine [id number] 16:03:01 Test Item Value Reference Range Interpretation Comments Free Thyroxine Index (test code = 3.3 96535-5) [facility]] HEMOGLOBIN [id number] 16:03:01 Test Item Value Reference Range Interpretation Comments Hemoglobin A1c (test code = 4548-4) 5.4 % <=5.6 [facility]] VITAMIN D, 25-HYDROXY, LC/MS/[id number] 16:03:01 Test Item Value Reference Range Interpretation Comments Vitamin D, 25-OH, 26.9 ng/ml 30.0-100.0 Reference range is based Total (test code on recommen dations in the = Vitamin D, EndocrineSociet y Clinical 25-OH, Total) Practice Guide line (J Clin Endocrinol Fcdwp2935;96:19 11-1930) [facility]] VITAMIN [id number] 16:03:01 Test Item Value Reference Range Interpretation Comments Vitamin B6 6.8 {UG/L} 5.3-46.7 This test was d eveloped and its Level (test performance code = characteristics determined by Vitamin B6 [facility]. It has not been Level) cleared orappro greg by the Food and Drug Administration. Performed At: [facility] [id number] [place], [place] [id number] ra Carlos ADAME Ph:[phone] [facility]] VITAMIN D, 1,25 DIHYDROXY LC/MS/[id number] 16:03:01 Test Item Value Reference Range Interpretation Comments Vitamin D 1,25 (OH)2 38 pg/ml Referen ce Range:Adults: Total (test code = 21 - 65 Vitamin D 1,25 (OH)2 Total) Vitamin D2 1,25 (OH)2 <10 (test code = Vitamin D2 1,25 (OH)2) Vitamin D3 1,25 (OH)2 38 pg/ml Perfor med At: ES (test code = Vitamin Esoteri x [id number] Lost D3 1,25 (OH)2) [place], [place] [id number] paul Isbell MD Ph:[phone] [facility] Brain wo contrast [id number] 07:13:00 Clinical Indication: - G93.0 Cerebral cystsComparison: NoneTECHNIQUE: CT images were obtained from the foramen magnum to the vertexwithout the use of intravenous contrast on a multidetector CT. Coronal andsagittal reconstructions were obtained.CT radiation dose DLP: 1273 mGy-cmFINDINGS: BRAIN PARENCHYMA: There is generalized brain parenchymal atrophy related to thepatient's age. Mild nonspecific periventricular white matter disease changesare noted. Atherosclerotic calcifications are present within the carotidsiphons and distal vertebral arteries. There are no focal mass lesions on thisnoncontrast head CT. There is no mass effect, midline shift or edema. There areno intra-axial or extra-axialfluid collections, intraventricular orintraparenchymal hemorrhage. There is no noncontrast CT evidence of a subacutestroke. The pineal, brainstem, cerebellum and skull base regions appearunremarkable. Previous arachnoid cyst is not present and likely represented aprominent frontal hemispheric sulcus. There is calcification globus pallidus.There is a partial empty sella. There is no cerebellar tonsillar ectopia.VENTRICLES: The lateral ventricles, third and fourth ventricles appearunremarkable. The basilar cisterns are normal.ORBITS, MASTOIDS AND PARANASAL SINUSES: The visualized orbits and paranasalsinuses are unremarkable. The mastoid air cells are clear.SKULL: There are no calvarial abnormalitiesseen.If there is further concern for intracranial pathology or acute stroke, MRI ofthe brain may be performed for complete assessment.IMPRESSION:Chronic age-related and small vessel ischemic changes wit hout mass, hemorrhageor subacute stroke. There is no arachnoid cyst.SL: BBERKOAVA-MADALYN--Read by: Gilson Roland MDDictated Date/time: 03/03/17 08:18Electronically Signed by: Gilson Roland MD 03/03/1708:20FINAL REPORTUnU[facility]] CBC (INCLUDES DIFF/PLT)2017-02-25 12:50:01 Test Item Value Reference Range Interpretation Comments WBC (test code = WBC) 7.4 {K/CMM} 3.7-10.4 RBC (test code = RBC) 5.08 {M/CMM} 4.70-6.10 Hgb (test code = 42046-8) 16.3 g/dl 14.0-18.0 Hct (test code = 4544-3) 47.1 % 42.0-54.0 MCV (test code = MCV) 92.6 fL 80.0-94.0 MCH (test code = MCH) 32.0 pg 27.0-31.0 MCHC (test code = MCHC) 34.5 g/dl 32.0-36.0 RDW (test code = RDW) 13.8 % 11.5-14.5 Platelet (test code = 777-3) 249 {K/CMM} 133-450 Mean Platelet Volume (test code 9.1 fL 7.4-10.4 = Mean Platelet Volume) [facility]] [id number] 12:50:01 Test Item Value Reference Range Interpretation Comments Segmented Neutrophils (test code 61.9 % 45.0-75.0 = 87838-4) Monocytes # (test code = 73705-2) 0.7 {K/CMM} 0.0-0.8 Lymphocytes (test code = 26.2 % 20.0-40.0 Lymphocytes) Eosinophils # (test code = 0.1 {K/CMM} 0.0-0.5 77996-1) Basophils # (test code = 16994-6) 0.1 {K/CMM} 0.0-0.2 Segs-Bands # (test code = 4.6 {K/CMM} 1.5-8.1 99392-8) Lymphocytes # (test code = 1.9 {K/CMM} 1.0-5.5 23748-3) [facility]] CMP [id number] 12:50:01 Test Item Value Reference Range Interpretation Comments Sodium Level 137 {mEq/l} 135-145 (test code = Sodium Level) Potassium Level 4.3 {mEq/l} 3.5-5.1 (test code = Potassium Level) Chloride Level 105 {mEq/l} 95-109 (test code = Chloride Level) Carbon Dioxide 28 {mEq/l} 24-32 (test code = Carbon Dioxide) AGAP (test code = 8.3 {mEq/l} 10.0-20.0 AGAP) Glucose Lvl (test 94 mg/dl 70-99 Adult refe rence range code = Glucose values reflec t the Lvl) clinical guidel inesof the [place] Diabet es Association. Creatinine Lvl 1.30 mg/dl 0.50-1.40 (test code = Creatinine Lvl) Blood Urea 8 mg/dl 7-22 Nitrogen (test code = Blood Urea Nitrogen) BUN/Creatinine 6 6-25 Ratio (test code = BUN/Creatinine Ratio) Total Protein 7.9 g/dl 6.4-8.4 (test code = 40966-7) Albumin Lvl (test 4.2 g/dl 3.5-5.0 code = 1751-7) Globulin (test 3.7 g/dl 2.7-4.2 code = Globulin) A/G Ratio (test 1.1 0.7-1.6 code = A/G Ratio) Calcium Level 8.6 mg/dl 8.5-10.5 Total (test code = Calcium Level Total) ALT (test code = 40 u/l 0-65 1742-6) AST (test code = 25 u/l 0-37 1916-6) Bili Total (test 1.0 mg/dl 0.2-1.3 code = 21626-7) Alk Phos (test 67 u/l 39-136 code = 1783-0) eGFR (test code = 57 The eGFR i s calculated eGFR) {ML/MIN/1.7} using the CKD-E PI formula. In mos t young, healthyindividu als the eGFR will be >9 0 mL/min/1.73m2. The eGFR declines with a ge. AneGFR of 60-89 may be normal in some population s, particularly th e elderly, forwhom the CKD -EPI formula has not been extensively yesika idated. Use of the eGFR isnot recommended in the following populations:Ind ividuals with unstable c reatinine concentrations, including patient s and those with seri ous co-morbid conditions.Kiki ents with extremes in mus villa mass or diet.The hari a above are obtained fr om the National Kidney Disease Education Progr am(NKDEP) which artemio [place] recommends that when the eGFR is used in patientswith ex tremes of body mass index for purposes of grupo g dosing, the eGFR should be multiplied by t he estimated BMI. [facility]] LIPID [id number] 12:50:01 Test Item Value Reference Range Interpretation Comments Chol (test code = Chol) 189 mg/dl <=199 Trig; Above High Threshold (test 224 mg/dl <=149 code = 2571-8) HDL Cholesterol (test code = HDL 33 mg/dl >=61 Cholesterol) CHD Risk (test code = CHD Risk) 5.73 4.00-7.30 LDL (test code = LDL) 111 mg/dl <=99 VLDL (test code = VLDL) 45 [facility]] T4, TOTAL (THYROXINE)2017-02-25 12:50:01 Test Item Value Reference Range Interpretation Comments Thyroxine (test code = Thyroxine) 6.9 ug/dL 4.7-13.3 [facility]] TSH, 3RD [id number] 12:50:01 Test Item Value Reference Range Interpretation Comments TSH (test code = 33667-8) 2.600 {uIU/ml} 0.360-3.740 [facility]] HEMOGLOBIN [id number] 12:50:01 Test Item Value Reference Range Interpretation Comments Hemoglobin A1c (test code = 4548-4) 5.0 % <=5.6 [facility]
[2020-01-26 12:29] LABS: Basophils % 0.9 % (0-1.3); Hematocrit 43.4 % (39.6-49.0); Lymphocytes % 35.2 % (15.3-44.8); RBC Red Blood Cell Count 5.03 M/uL (4.33-5.43)
[2020-01-26 12:40] LABS: Urine Blood NEGATIVE (NEG); Urine Glucose NEGATIVE (NEG); Urine Protein NEGATIVE (NEG); Urine Specific Gravity 1.025 (1.005-1.030)
[2020-01-26 12:43] LABS: Urine Bacteria NONE SEEN /HPF (NONE SEEN); Urine Culture Reflex Order NOT NEEDED; Urine RBC NONE SEEN /HPF (NONE SEEN)
[2020-01-26 12:48] LABS: Albumin 3.4 g/dL (3.4-5.0); Bilirubin Direct 0.2 mg/dL (0-0.2); Bilirubin Total 0.9 mg/dL (0.2-1.0); Potassium 3.7 mmol/L (3.5-5.1); Protein, Total 7.8 g/dL (6.4-8.2)
[2020-01-26] MEDS ORDERED: ONDANSETRON 4 MG/2 ML VIAL ONE (12:49)
--- NOTE | 2020-01-26 14:15 | RAD REPORT ---
EXAM DESCRIPTION: CT - Abdomen Pelvis W Contrast - 01/26/2020 1:50 pm CLINICAL HISTORY: Abdominal pain COMPARISON: none. TECHNIQUE: Computed axial tomography of the abdomen pelvis was obtained. 100 cc Isovue-300 was admin istered intravenously. Oral contrast was not requested which limits evaluation of bowel. All CT scans are performed using dose optimization technique as appropriate and may include automated exposure control or mA/KV adjustment according to patient size. FINDINGS: Mild to moderate bilateral patchy ground-glass opacities within the lungs Cholelithiasis without gallbladder wall thickening The liver, spleen, pancreas, adrenal and kidneys appear unremarkable. There is no evidence of diverticulitis. Normal appendix. Prostate gland mildly enlarged. Small umbilical hernia IMPRESSION: Mild to moderate bilateral patchy ground-glass opacities within the lungs may indicate C ovid pneumonia Cholelithiasis that evidence cholecystitis
--- NOTE | 2020-01-26 14:17 | RAD REPORT ---
EXAM DESCRIPTION: Juan Jose Single View01/26/2020 1:52 pm CLINICAL HISTORY: Chest pain COMPARISON: none FINDINGS: Mild to moderate bilateral patchy lung opacities. The heart is normal size. Pacemaker leads in place IMPRESSION: Mild to moderate bilateral patchy lung opacities may represent pneumonia
--- NOTE | 2020-01-26 14:44 | ER ---
Nurse's Notes [facility] Name: Mathieu Stoner Age: 69 yrs Sex: Male : 1950 Arrival Date: 01/26/2020 Time: 11:14 Bed 18 Private MD: Diagnosis: Pneumonia due to other specified infectious organisms;Cholelithiasis Presentation: 01/25 11:21 Chief complaint: Patient states: Abd pain on the right side with bloating for 2 weeks. ll1 No fever. Had covid last month, was hospitalized and released. Still has SOB with exertion and slight cough. Coronavirus screen: Client denies travel out of the [place] in the last 14 days. cough unrelated to allergies, difficulty breathing, Client presents with at least one sign or symptom that may indicate coronavirus-19. Standard/surgical mask placed on the client. Client reports previous positive COVID test result. Ebola Screen: Patient denies travel to an Ebola-affected area in the 21 days before illness onset. Initial Sepsis Screen: Does the patient meet any 2 criteria? No. Patient's initial sepsis screen is negative. Does the patient have a suspected source of infection? Yes: Acute abdominal pain. Risk Assessment: Do you want to hurt yourself or someone else? Patient reports no desire to harm self or others. Onset of symptoms was January 12, 2020. 11:21 Method Of Arrival: Ambulatory ll1 11:21 Acuity: MONICO 3 ll1 Triage Assessment: 13:00 General: Behavior is calm, cooperative. ae4 15:09 General: Appears in no apparent distress. ae4 Historical: - Allergies: 11:25 No Known Allergies; ll1 - PMHx: 11:25 Hypertension; ll1 - PSHx: 11:25 pacemaker; multiple joint surgeries; ll1 - Immunization history:: Flu vaccine is up to date. - Social history:: Smoking status: Patient denies any tobacco usage or history of. Screenin:09 Abuse screen: Denies threats or abuse. Nutritional screening: No deficits noted. ae4 Tuberculosis screening: No symptoms or risk factors identified. Fall Risk None identified. Assessment: 13:00 Pain: Complains of pain in abdomen. GI: Bowel sounds present X 4 quads. Abd is soft and ae4 non tender X 4 quads. 13:16 Reassessment: Radiology at bedside. ae4 Vital Signs: 11:21 BP 103 / 86; Pulse 76; Resp 18; Temp 98.2; Pulse Ox 98% ; Weight 85.28 kg; Height 5 ft. ll1 8 in. (172.72 cm); Pain 5/10; 12:30 BP 100 / 74; Pulse 65; Resp 17; Pulse Ox 97% on R/A; dh3 13:00 BP 113 / 60; Pulse 76; Resp 17; Pulse Ox 97% on R/A; dh3 14:46 BP 103 / 69; Pulse 59; Resp 16; Pulse Ox 98% on R/A; dh3 15:09 BP 118 / 83; Pulse 63; Resp 18; Pulse Ox 96% on R/A; ae4 11:21 Body Mass Index 28.59 (85.28 kg, 172.72 cm) ll1 ED Course: 11:14 Patient arrived in ED. ds1 11:23 Triage completed. ll1 11:25 Arm band placed on. ll1 11:41 Mart Ayoub PA is PHCP. cp 11:41 Vinod Resendez MD is Attending Physician. cp 12:00 Urine collected: clean catch specimen, clear, jas colored. jp3 12:10 Initial lab(s) drawn, by ms, sent to lab. Inserted saline lock: 20 gauge in right jp3 antecubital area, using aseptic technique. Blood collected. Patient maintains SpO2 saturation greater than 95% on room air. 12:26 Bed in low position. Call light in reach. Side rails up X 1. Verbal reassurance given. jp3 Pulse ox on. NIBP on. 12:34 Gilberto Alejo, PAUL is Primary Nurse. ae4 13:36 Urine Dipstick--Ancillary (enter results) Sent. sv 13:50 CT Abd/Pelvis - IV Contrast Only In Process Unspecified. EDMS 13:50 XRAY Chest (1 view) Sent. sv 13:52 XRAY Chest (1 view) In Process Unspecified. EDMS 14:42 Mohsen Crandall MD is Referral Physician. cp 15:00 No provider procedures requiring assistance completed. IV discontinued, intact, ae4 bleeding controlled, No redness/swelling at site. Pressure dressing applied. Administered Medications: 12:48 Drug: Zofran (Ondansetron) 4 mg Route: IVP; Site: right antecubital; ae4 19:50 Follow up: Response: Nausea is decreased ae4 Outcome: 14:43 Discharge ordered by . cp 15:00 Discharged to home ambulatory. ae4 15:00 Condition: stable 15:00 Discharge instructions given to patient, Instructed on discharge instructions, follow up and referral plans. Demonstrated understanding of instructions, follow-up care. 15:14 Patient left the ED. eb Addendum: 01/30/2020 10:00 Addendum: COVID-19 Result: Positive result giiven to ED physician to notify pt. i w Physician was able to contact pt and pt was notified of positive COVID-19 swab result. Physician answered pt questions. Signatures: Dispatcher [employer] EDMS Gela Villasenor, RN RN Zeina Valdez ds1 Gabrielle Mckinnon RN RN iw Mart Ayoub, Janeen Ravi cp 3 Destiney Eason Jacob jp3 Gilberto Alejo RN RN ae4 Neel Arreola RN RN ll1
--- NOTE | 2020-01-26 14:44 | EDPHYS ---
Physician Documentation [facility] Name: Mathieu Stoner Age: 69 yrs Sex: Male : 1950 Arrival Date: 01/26/2020 Time: 11:14 Bed 18 Private MD: ED Physician Vinod Resendez HPI: 01/25 12:00 This 69 yrs old Male presents to ER via Ambulatory with complaints of Covid cp +, Abdominal Pain. 12:00 The patient presents with abdominal pain right mid abdomen. cp 12:00 Onset: The symptoms/episode began/occurred 2 week(s) ago. The symptoms do not radiate. cp Associated signs and symptoms: Pertinent negatives: blood in stools, diarrhea, dysuria, fever, testicular pain, vomiting. The symptoms are described as intermittent. Modifying factors: The symptoms are alleviated by nothing, the symptoms are aggravated by nothing. Severity of pain: in the emergency department the pain has improved moderately. Historical: - Allergies: 11:25 No Known Allergies; ll1 - PMHx: 11:25 Hypertension; ll1 - PSHx: 11:25 pacemaker; multiple joint surgeries; ll1 - Immunization history:: Flu vaccine is up to date. - Social history:: Smoking status: Patient denies any tobacco usage or history of. ROS: 12:05 Constitutional: Negative for body aches, chills, fever, poor PO intake. cp 12:05 Eyes: Negative for injury, pain, redness, and discharge. cp 12:05 ENT: Negative for ear pain, sore throat, difficulty swallowing, difficulty handling secretions. 12:05 Cardiovascular: Negative for chest pain, edema, palpitations. 12:05 Respiratory: Positive for cough, "sounds productive", Negative for shortness of breath, wheezing. 12:05 Abdomen/GI: Positive for abdominal pain, Negative for nausea, vomiting, and diarrhea, anorexia, black/tarry stool, rectal bleeding. 12:05 Back: Negative for pain at rest, pain with movement. 12:05 : Negative for urinary symptoms, testicular pain 12:05 Skin: Negative for rash. 12:05 Neuro: Negative for altered mental status, headache, weakness. 12:05 All other systems are negative. Exam: 12:10 Constitutional: The patient appears in no acute distress, alert, awake, cp non-diaphoretic, non-toxic, well developed, well nourished. 12:10 Head/Face: Normocephalic, atraumatic. cp 12:10 Eyes: Periorbital structures: appear normal, Conjunctiva: normal, no exudate, no injection, Sclera: no appreciated abnormality, Lids and lashes: appear normal, bilaterally. 12:10 ENT: External ear(s): are unremarkable, Nose: is normal, Mouth: Lips: moist, Oral mucosa: pink and intact, moist, Posterior pharynx: is normal, airway is patent, no erythema, no exudate. 12:10 Chest/axilla: Inspection: normal, Palpation: is normal, no crepitus, no tenderness. 12:10 Cardiovascular: Rate: normal, Rhythm: regular. 12:10 Respiratory: the patient does not display signs of respiratory distress, Respirations: normal, no use of accessory muscles, no retractions, labored breathing, is not present, Breath sounds: bronchial sounds, that are mild, are heard diffusely, stridor, is not appreciated, wheezing: is not appreciated. 12:10 Abdomen/GI: Inspection: abdomen appears normal, Bowel sounds: active, all quadrants, Palpation: soft, in all quadrants, mild abdominal tenderness, in the right mid abdomen, rebound tenderness, is not appreciated, involuntary guarding, is not appreciated. 12:10 Back: CVA tenderness, is absent. 12:10 Skin: no rash present. 12:10 Neuro: Orientation: to person, place \\T\\ time. Mentation: is normal, Motor: moves all fours, strength is normal. Vital Signs: 11:21 BP 103 / 86; Pulse 76; Resp 18; Temp 98.2; Pulse Ox 98% ; Weight 85.28 kg; Height 5 ft. ll1 8 in. (172.72 cm); Pain 5/10; 12:30 BP 100 / 74; Pulse 65; Resp 17; Pulse Ox 97% on R/A; dh3 13:00 BP 113 / 60; Pulse 76; Resp 17; Pulse Ox 97% on R/A; dh3 14:46 BP 103 / 69; Pulse 59; Resp 16; Pulse Ox 98% on R/A; dh3 15:09 BP 118 / 83; Pulse 63; Resp 18; Pulse Ox 96% on R/A; ae4 11:21 Body Mass Index 28.59 (85.28 kg, 172.72 cm) ll1 MDM: 11:53 Patient medically screened. cp 14:42 Data reviewed: vital signs, nurses notes, lab test result(s), radiologic studies, CT cp scan. 14:42 Counseling: I had a detailed discussion with the patient and/or guardian regarding: the cp historical points, exam findings, and any diagnostic results supporting the discharge/admit diagnosis, lab results, radiology results, the need for outpatient follow up, a general surgeon, to return to the emergency department if symptoms worsen or persist or if there are any questions or concerns that arise at home. Special discussion: Based on the patient's Hx, exam, and Dx evaluation, there is no indication for emergent surgery or inpatient Tx. It is understood by the patient/guardian that if the Sx's persist or worsen they need to return immediately for re-evaluation. ED course: VSS. CT abdomen/pelvis results discussed showing gallstones. Will discharge to home for continued monitoring. 01/25 11:54 Order name: Basic Metabolic Panel; Complete Time: 13:51 cp 01/25 13:51 Interpretation: Normal except: CL 108; GLUC 145; CRE 1.40; GFR 51. 01/25 11:54 Order name: CBC with Diff; Complete Time: 13:51 cp 01/25 13:51 Interpretation: Normal except: MCV 86.3. cp 01/25 11:54 Order name: Hepatic Function; Complete Time: 13:51 cp 01/25 13:57 Interpretation: Normal except: GLOB 4.4; A/G 0.8. cp 01/25 11:54 Order name: Lipase; Complete Time: 13:51 cp 01/25 11:54 Order name: Urine Microscopic Only; Complete Time: 13:51 cp 01/25 12:29 Order name: Urine Dipstick--Ancillary (enter results) eb 01/25 11:54 Order name: IV Saline Lock; Complete Time: 12:27 cp 01/25 11:54 Order name: Labs collected and sent; Complete Time: 12:27 cp 01/25 11:54 Order name: Urine Dipstick-Ancillary (obtain specimen); Complete Time: 12:27 cp 01/25 12:29 Order name: Urine Dipstick-Ancillary; Complete Time: 13:51 EDMS 01/25 12:29 Order name: CT Abd/Pelvis - IV Contrast Only; Complete Time: 14:30 01/25 14:30 Interpretation: Report reviewed. 01/25 12:29 Order name: XRAY Chest (1 view); Complete Time: 14:30 cp 01/25 14:44 Order name: COVID-19 cp 01/25 14:31 Order name: PO challenge; Complete Time: 15:09 cp Administered Medications: 12:48 Drug: Zofran (Ondansetron) 4 mg Route: IVP; Site: right antecubital; ae4 19:50 Follow up: Response: Nausea is decreased ae4 Disposition: 01/26/20 14:43 Discharged to Home. Impression: Pneumonia due to other specified infectious organisms, Cholelithiasis. - Condition is Stable. - Discharge Instructions: Community-Acquired Pneumonia, Adult, Cholelithiasis. - Prescriptions for Zofran 4 mg Oral Tablet - take 1 tablet by ORAL route every 12 hours As needed; 20 tablet. Zithromax Z- Robbie 250 mg Oral Tablet - take 1 tablet by ORAL route as directed for 5 days Day 1 - take two (2) tablets one time. Day 2, 3, 4 , 5 take one (1) tablet once daily.; 6 tablet. - Medication Reconciliation Form, Thank You Letter, Antibiotic Education, Prescription Opioid Use form. - Follow up: Mohsen Crandall MD; When: 2 - 3 days; Reason: gallstones. Follow up: Private Physician; When: 2 - 3 days; Reason: pneumonia. - Problem is new. - Symptoms have improved. Addendum: 01/29/2020 09:29 Co-signature as Attending Physician, Vinod Resendez MD I agree with the assessment and k dr plan of care. Signatures: Dispatcher [employer] EDMS Vinod Resendez MD MD [facility] Mart Ayoub PA PA cp Destiney Eason Andrea, RN RN ae4 Neel Arreola RN RN ll1 Corrections: (The following items were deleted from the chart) 01/25 15:14 14:43 01/26/2020 14:43 Discharged to Home. Impression: Pneumonia due to other specified eb infectious organisms; Cholelithiasis. Condition is Stable. Forms are Medication Reconciliation Form, Thank You Letter, Antibiotic Education, Prescription Opioid Use. Follow up: Mohsen Crandall; When: 2 - 3 days; Reason: gallstones. Follow up: Private Physician; When: 2 - 3 days; Reason: pneumonia. Problem is new. Symptoms have improved. cp
[2020-01-26 19:59] VITALS: TEMP 98.2
[2020-01-26 20:13] VITALS: BP 118/83; O2SAT 96
== END 2020-01-26 15:14 | disposition home or self-care (01) ==
LOC: ER 11:06
DX: U07.1 COVID-19 (principal); J16.8 Pneumonia due to other specified infectious organisms; K80.20 Calculus of gallbladder without cholecystitis without obstruction; I10 Essential (primary) hypertension; Z95.0 Presence of cardiac pacemaker
CPT/HCPCS: 85025; 80048; 36415; 80076; 83690; 74177; 71045; 96374; 99284; U0002; Q9967; J2405; 81003; 81015

== ENCOUNTER 2020-08-03 10:15 | Emergency (ER) | payer OTHER ==
--- OUTSIDE RECORDS SUMMARY | 2020-08-03 10:20 | XMS REPORT | Continuity of Care Document ---
:1950 Author Organization [facility] t Address [address] [place] [address] Care Team Providers Name Role Phone AUNDREA Primary Care Physician Unavailable DAVID Attending Clinician Unavailable DANGELO Attending Clinician Unavailable Shanique ADAME Attending Clinician Lisbeth Dupont Attending Clinician Kenyatta ADAME Attending Clinician SHEREE Attending Clinician Unavailable Sheree ADAME Attending Clinician CO19 Attending Clinician Unavailable Aundrea ADAME Attending Clinician Anum Clemens Attending Clinician DAVID Attending Clinician Unavailable ROGER Attending Clinician Unavailable Ashok Rae Attending Clinician ROGER Attending Clinician Unavailable Joanna Attending Clinician BRENDAN Attending Clinician Unavailable AUNDREA Attending Clinician Unavailable JOSE ELIAS Attending Clinician Unavailable KIAH Attending Clinician Unavailable ILDEFONSO Attending Clinician Unavailable Ashok Rae Admitting Clinician Joanna Admitting Clinician Payers Payer Name Policy Type Policy Effective Date Expiration Date Sour ce Number MEDICAREMEDICARE PART [id number] 2010 MD Bruce Pickard AND 00:00:00 [id number] 2010- [id number] MARIA G SOLIMANMedicare AETNA SENIOR [id number] 2019 MD Barrera SUPPLEMENTAETNA 00:00:00 SENIOR SUPPLEMENT-SECONDARY [id number] MEDICAREMEDICARE PART [id number] 2010 Reynaldo jayne Neeraj AND 00:00:00 Druze [id number] 2010- Present[facility] TXMedicare AETNAAETNA MEDICARE [id number] 2019 [place] [id number] 00:00:00 Met ramos /03/2019-PresentEvan cool [place] [id number] 2018 2019 7 00:00:00 00:00:00 Problems Condition Condition Condition Status Onset Resolution Last Treating Co mments Source Name Details Category Date Date Treatment Clinician Date D49.6 - Diagnosis Active 2020-05-30 Me moria NEOPLASM 3-18 07:38:00 l OF D49.6 - 00:01: [place] UNSPECIFIE NEOPLASM 00 D BEHAVI OF UNSPECIFIE D BEHAVI Active 05/22/2020 [facility] G93.0 - Diagnosis Active 2020-04-16 Me moria CEREBRAL 2-08 12:24:00 l CYSTS G93.0 - 00:01: Nathan CEREBRAL 00 CYSTS Active 04/14/2020 [facility] Z01.811/U0 Diagnosis Active 2019-032020-02-11 Memoria 7.1 2-07 13:53:00 l 13:40: Nathan Z01.811/U0 00 7.1 Active 02/11/2020 [facility] CALCULUS Diagnosis Active 2019-032020-02-19 M emoria OF 04-05 18:14:00 l GALLBLADDE CALCULUS 00:00: He rmann R WITHOUT OF 00 CHOLECYS GALLBLADDE R WITHOUT CHOLECYS Active 02/04/2020 [facility] COVID+, Diagnosis Active 2019-032020-01-08 Me moria COUGH, 0-27 21:54:00 l MULTIFOCAL COVID+, 00:00: Her tapia PNEUMONIA COUGH, 00 MULTIFOCAL PNEUMONIA Active 01/01/2020 [facility] COVID+, Diagnosis Active 2019-032020-01-01 Me moria COUGH 027 17:05:00 l COVID+, 00:00: [place] COUGH 00 Active 01/01/2020 [facility] Osteochond Osteochond Disease Active [place]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 07-01 [facility] [place] [facility] [place] [facility] 00 Left knee Left knee Disease Active [facility] pain pain 11-26 [facility] 00[facility]: st 00 Bladder Bladder Disease Active [facility]12 [facility] obstructio obstructio 00:00: Me dical n n 00 Center Hyperchole Hyperchole Problem Active U nivers sterolemia sterolemia it y of [place] Physici ans Left Left Problem Active Univers carotid carotid ity of [place] [facility] Acute Acute Problem Active [facility] stress stress ity of disorder disorder [place] [facility] Chest pain Chest pain Problem Active U nivers ity of [place] [facility] ans Shortness Shortness Problem Active Uni vers of breath of breath ity of [place] [facility] ans Ventricula Ventricula Problem Active U nivers r r [place] of tachycardi [place]cardi [place] Intracrani Intracrani Problem Active U nivers al abscess al abscess it y of [place] [facility] ans Sleep Sleep Problem Active Univers disturbanc disturbanc it y of es es [place] [facility] ans Grieving Grieving Problem Active Unive rs ity of [place] [facility]ici ans Obstructiv Obstructiv Problem Active U nivers e sleep e sleep ity of apnea apnea [place] [facility] ans Insomnia Insomnia Problem Active Unive rs ity of [place] [facility] ans Mood Mood Problem Active Univers disorder disorder ity of [place] [facility] ans Memory Memory Problem Active Univers deficits deficits ity of [place] [facility] ans Post Post Problem Active Univers traumatic traumatic ity of stress stress [place] disorder disorder Physic i (PTSD) (PTSD) ans 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 ity of [place] [facility] ans Vitamin Vitamin Problem Active Univers B12 B12 it[place] of deficiency deficiency [place] [facility] MCI (mild MCI (mild Problem Active Uni vers cognitive cognitive [place]y of impairment impairment [place] ) with ) with Physici memory memory ans loss loss Depression Depression Problem Active U nivers ity of [place] [facility] ans Chronic Chronic Problem Active Univers otitis otitis ity of media of media of [place] both ears both ears Phys ici ans Bilateral Bilateral Problem Active Uni vers sensorineu sensorineu it y of ral [facility] hearing hearing Physici loss loss ans 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 disease disease ans Splenomega Splenomega Problem Active U nivers ly ly ity of [place] [facility]ici ans [place] of [place] of Problem Active Univers sinus sinus ity of [place] [facility] ans Headache Headache Problem Active Unive rs ity of [place] [facility] ans Encounter Encounter Problem Active Uni vers for for ity of administra administra [place] tion of tion of Physici COVID-19 COVID-19 ans vaccine vaccine 2019-nCoV Problem 2020-01-07 Me moria acute 08:03:33 l respirator Zuhair n y disease 2019-nCoV acute respirator y disease 01/07/2020 [facility] Bilateral Problem Active 2020-05-31 Me moria hearing 00:33:58 l loss Nathan (finding) Bilateral hearing loss (finding) Active Problem 05/31/2020 [facility] Benign Problem Active 2020-05-31 Memor ia prostatic 00:33:58 l hyperplasi Benign Herm ama a prostatic (disorder) hyperplasi a (disorder) Active Problem 05/31/2020 [facility] Bradycardi Problem Active 2020-05-31 M emoria a 00:33:58 l (disorder) Zuhair n Bradycardi a (disorder) Active Problem 05/31/2020 [facility] Crohn's Problem Active 2020-05-31 Wale alejandro disease 00:33:58 l (disorder) Crohn's Her tapia disease (disorder) Active Problem 05/31/2020 [facility] COVID-19 Diagnosis Active 2020-02-11 M emoria 13:53:00 l COVID-19 Zuhair n Active [facility] COUGH Diagnosis Active 2020-01-08 Mem oria 21:54:00 l COUGH Nathan Active [facility] PNEUMONIA, Diagnosis Active 2020-01-08 Memoria UNSPECIFIE 21:54:00 l D ORGANISM Zuhair n PNEUMONIA, UNSPECIFIE D ORGANISM Active [facility] ENCOUNTER Diagnosis Active 2020-02-11 Memoria FOR 13:53:00 l PREPROCEDU Zuhair n RAL ENCOUNTER RESPIRATOR FOR Y PREPROCEDU RAL RESPIRATOR Y Active [facility] NEOPLASM Diagnosis Active 2020-05-30 M emoria OF 07:38:00 l UNSPECIFIE NEOPLASM He rmann D BEHAVIOR OF OF BRAI UNSPECIFIE D BEHAVIOR OF BRAI Active [facility] Allergies, Adverse Reactions, Alerts This patient has no known allergies or adverse reactions. Social History Social Habit Start Date Stop Date Quantity Comments Source Sex Assigned At [facility] Social History 2020-02-14 2020-02-14 [facility] carolann 16:21:11 16:21:11 Alcohol Comment 2019-06-27 2019-06-27 1-2 times a week MD Barrera 00:00:00 00:00:00 Tobacco use and 2014-09-12 2014-09-12 Never used [facility] - exposure 00:00:00 00:00:00 [facility] Alcohol intake 2014-09-12 2014-09-12 Current drinker [facility] [employer] [place] Damion 00:00:00 00:00:00 of [facility] [place] (finding) Smoking Status Start Date Stop Date Source Never smoker [facility] Medications Ordered Filled Start Stop Current Ordering Indication Dosage Frequency Signature Comments Components Source Medication Medication Date Date Medication? Clinician (SIG) Name Name levothyroxi Yes 100ug Take 100 M D ne 3-02 mcg by Anderso (SYNTHROID, 19:59: mouth. n LEVOTHROID) 35 100 mcg tablet olmesartan Yes 20mg Take 20 mg M D (BENICAR) 3-02 by mouth Baljeet o 20 mg 19:59: daily. n tablet 35 escitalopra Yes 1{tbl} Take 1 MD m (LEXAPRO) 3-02 tablet by And erso 20 mg 19:59: mouth n tablet 35 daily. metoprolol Yes 50mg Take 50 mg M D tartrate 3-02 by mouth Anderso (LOPRESSOR) 19:59: twice n 50 mg 35 daily. tablet triamcinolo Yes Bitten or Apply ne 3-02 stung by topically Baljeet mata (KENALOG) 00:00: nonvenomous to n ointment 00 insect and affected 0.1% other area(s) nonvenomous twice arthropods, daily. initial Discontinu encounter e when itching resolves. donepezil Yes 1{tbl} Take 1 MD (ARICEPT) 2-06 tablet by Nirav so 10 mg 00:00: mouth n tablet 00 daily. donepezil Yes See Memoria 10 mg oral 2-05 Instructio l tablet 22:51: ns, 03/08 Nathan tab PO Bedtime x 1 month, then 1 tab at bedtime, # 30 tab, 6 Refill(s), Pharmacy: [facility], 172.72, cm, 04/11/20 15:23:00 RESPITE CARE PROVIDER, Height, 92.727, kg, 04/11/20 15:23:00 RESPITE CARE PROVIDER, Weight Hydralazine 2019-03 No Notes: Wale alejandro 2-14 (Same as: l 22:59: Apresoline ) Push over 5 minutes Labetalol 2019-03 No 10 mg, 2 Wale alejandro 2-14 mL, Route: l 22:59: IVP, Drug form: INJ, Q5Min, Dosing Weight 87.591, kg, PRN Elevated BP, Start date: 02/18/20 16:59:00 RESPITE CARE PROVIDER, Duration: 5 doses or times, Stop date: Limited # of times, 0 Fentanyl 2019-03 No Notes: Memoria 2-14 (Same as: l 22:59: Sublimaze) Preservat gino free. Oxycodone 2019-03 No Notes: Memori a 2-14 (Same as: l 22:59: 'Roxicodon e) Hydromorpho 2019-03 No Notes: Wale alejandro ne 2-14 Same as: l 22:59: Dilaudid Flumazenil 2019-03 No Notes: Memor ia 2-14 (Same as: l 22:59: Romazicon) Naloxone 2019-03 No Notes: Memoria 2-14 Same as l 22:59: Narcan Ephedrine 2019-03 No Notes: Memori a 2-14 final l 22:59: concentrat ion 5 mg/mL Diphenhydra 2019-03 No Notes: Wale alejandro mine 2-14 (Same as: l 22:59: Benadryl) Racepinephr 2019-03 No Notes: Wale alejandro ine 2-14 (racepinep l 22:59: hrine *2.25% inh 0.5ml SOLN) (Same as:S2) glycopyrron 2019-03 No Notes: Wale alejandro ium 2-14 (Same as: l 22:59: Robinul) Meperidine 2019-03 No Notes: Memor ia 2-14 (Same as: l 22:59: Demerol) "Use Precaution in Elderly, Seizure disorders, and Renal impairment " Ondansetron 2019-03 No Notes: Wale alejandro 2-14 (Same as: l 22:59: Zofran) MEDICATION WASTE Product Size: 4 mg Product Wasted: ___ mg Dexamethaso 2019-03 No Notes: Wale alejandro ne 2-14 Concentrat l 22:59: ion: 4mg/ml Promethazin 2019-03 No 6.25 mg, Me moria e 2-14 25 mL, l 22:59: Route: IVPB, Drug form: SOLN, ONCE, Dosing Weight 87.591, kg, PRN Nausea & Vomiting, Start date: 02/18/20 16:59:00 RESPITE CARE PROVIDER, 0 ondansetron 2019-03 No Route: IV, Memoria (ANES) 2-14 Drug form: l 21:04: INJ, ONCE, Stop date: 02/18/20 15:04:00 RESPITE CARE PROVIDER glycopyrrol 2019-03 No Route: IV, Memoria ate (ANES) 2-14 Drug form: l 21:04: INJ, ONCE, Stop date: 02/18/20 15:04:00 RESPITE CARE PROVIDER neostigmine 2019-03 No Route: IV, Memoria (ANES) 2-14 Drug form: l 21:04: INJ, ONCE, Stop date: 02/18/20 15:04:00 RESPITE CARE PROVIDER labetalol 2019-03 No Route: IV, Me moria (ANES) 2-14 Drug form: l 20:56: INJ, ONCE, Stop date: 02/18/20 14:56:00 RESPITE CARE PROVIDER Dilaudid 2019-03 No Route: IV, Mem oria (ANES) 2-14 Drug form: l 20:50: INJ, ONCE, Stop date: 02/18/20 14:50:00 RESPITE CARE PROVIDER lidocaine 2019-03 No Route: IV, Me moria (ANES) 2-14 Drug form: l 20:40: INJ, ONCE, Stop date: 02/18/20 14:40:00 RESPITE CARE PROVIDER propofol 2019-03 No Route: IV, Mem oria (ANES) 2-14 Drug form: l 20:40: INJ, ONCE, Stop date: 02/18/20 14:40:00 RESPITE CARE PROVIDER rocuronium 2019-03 No Route: IV, M emoria (ANES) 2-14 Drug form: l 20:40: INJ, ONCE, Stop date: 02/18/20 14:40:00 RESPITE CARE PROVIDER fentaNYL 2019-03 No Route: IV, Mem oria (ANES) 2-14 Drug form: l 20:40: INJ, ONCE, Stop date: 02/18/20 14:40:00 RESPITE CARE PROVIDER ceFAZolin 2019-03 No Route: IV, Me moria (ANES) 2-14 Drug form: l 20:40: INJ, ONCE, Stop date: 02/18/20 14:40:00 RESPITE CARE PROVIDER succinylcho 2019-03 No Route: IV, Memoria line (ANES) 2-14 Drug form: l 20:40: INJ, ONCE, Stop date: 02/18/20 14:40:00 RESPITE CARE PROVIDER dexamethaso 2019-03 No Route: IV, Memoria ne (ANES) 2-14 Drug form: l 20:40: INJ, ONCE, Stop date: 02/18/20 14:40:00 RESPITE CARE PROVIDER phenylephri 2019-03 No Route: IV, Memoria ne (ANES) 2-14 Drug form: l 20:40: INJ, ONCE, Stop date: 02/18/20 14:40:00 RESPITE CARE PROVIDER midazolam 2019-03 No Route: IV, moria (ANES) 2-14 Drug form: l 20:20: SOLN, [place] 00 ONCE, Stop date: 02/18/20 14:20:00 RESPITE CARE PROVIDER famotidine 2019-03 No Route: IV, M emoria (ANES) 2-14 Drug form: l 20:20: INJ, ONCE, Nathan Stop date: 02/18/20 14:20:00 RESPITE CARE PROVIDER Lactated 2019-03 No Route: IV, Mem oria Ringers 2-14 Total l Injection 19:45: Volume: Ashley nn IV (ANES) 00 1,000, 1000 mL Start date: 02/18/20 13:45:00 RESPITE CARE PROVIDER, Stop date: 02/18/20 14:45:00 RESPITE CARE PROVIDER amLODIPine 2019-03 Yes 5 mg = 1 Mem oria 5 mg oral 2-14 tab, PO, l tablet 18:57: Daily, # Nathan 00 90 tab, 0 Refill(s) Calcium 2019-03 No 1,000 mL, Memor ia Chloride 2-14 Rate: 75 l 0.0014 00:35: ml/hr, Nathan MEQ/ML / 00 Infuse Potassium over: 13.3 Chloride hr, Route: 0.004 IV, Dosing MEQ/ML / Weight Sodium 88.636 kg, Chloride Total 0.103 Volume: MEQ/ML / 1,000, Sodium Start Lactate date: 0.028 12/20 MEQ/ML 18:35:00 Injectable RESPITE CARE PROVIDER, Solution Duration: 30 day, Stop date: 03/18/20 18:34:00 RESPITE CARE PROVIDER, 2.08, m2, 0 Acetaminoph 2019-03 No Notes: Max Memoria en 2-14 acetaminop l 00:35: hen 4000 [place] 00 mg/day (4 gm/day). (Same as: Tylenol Extra Strength) ceFAZolin + 2019-03 No Notes: Wale alejandro sterile 2-11 (Same As: l water 20 mL 02:00: Ancef, Herm ama 00 Kefzol) MEDICATION WASTE Product Size: 1000 mg Product Wasted: ___ mg Amoxicillin 2019-03 No 1 tab, PO, Memoria 875 MG / 2-10 BID, # 20 l Clavulanate 16:36: tab, 0 Herm ama 125 MG Oral 00 Refill(s) Tablet Doxycycline 2019-03 No 100 mg = 1 Memoria Monohydrate 2-10 cap, PO, l 100 MG Oral 16:36: Daily, 0 He rmann Capsule 00 Refill(s) olmesartan 2019-03 No 20 mg = 1 Me moria 20 mg oral 2-10 tab, PO, l tablet 16:07: Daily, # Nathan 00 30 tab, 0 Refill(s) Ondansetron 2019-03 Yes 4 mg = 1 Me moria 4 MG Oral 2-10 tab, PO, l Tablet 16:06: Q6H, PRN Nathan [Zofran] 00 Nausea/Vom iting, # 30 tab, 0 Refill(s) Testosteron 2019-03 Yes 0 Memori a e 2-10 Refill(s) l 16:06: [place] 00 zolpidem 10 2019-03 Yes 10 mg = 1 M emoria mg oral 2-10 tab, PO, l tablet 16:05: Bedtime, [place] 00 PRN for sleep, # 14 tab, 0 Refill(s) Amoxicillin Amoxicillin 2019-03 Yes MALA Q12H TAKE 1 Univers -Pot -Pot 2-03 HERNANDEZ TABLET ity of Clavulanate Clavulanate 00:00: M.D. EVERY 12 [place] 875-125 MG 875-125 MG 00 HOURS WITH Physici Oral Tablet Oral Tablet MEALS ans UNTIL GONE. methylPREDN methylPREDN 2019-03 Yes MALA TAKE Univers ISolone 4 ISolone 4 2-03 HERNANDEZ DIRECTED ity of MG Oral MG Oral 00:00: M.D. [place] Tablet Tablet 00 Physici Therapy Therapy ans Pack Pack dexamethaso 2019-03 Yes 6 mg = 1 Me moria ne 6 mg 0-29 tab, PO, l oral tablet 19:44: Daily, X 7 [place] 00 day, # 7 tab, 0 Refill(s), Pharmacy: [facility], 172.72, cm, 01/01/20 22:45:00 CDT, Height, 90.909, kg, 01/01/20 22:45:00 CDT, Weight Codeine 2019-03 Yes 5 ml, PO, Memor ia Phosphate 2 0-29 Q6H, PRN l MG/ML / 19:44: for cough Ashley nn Guaifenesin 00 and 20 MG/ML congestion Oral , X 14 Solution day, # 240 [Cheratussi mL, 0 n] Refill(s), Pharmacy: [facility], 172.72, cm, 01/01/20 22:45:00 CDT, Height, 90.909, kg, 01/01/20 22:45:00 CDT, Weight Thyroxine 2019-03 No Notes: Memori a 0-29 Take 1 l 14:00: hour [place] 00 before or 2 hours after meal; Enteral feeds may interefere with the absorption of this medication . (Same as:Levothr oid, Synthroid) Dexamethaso 2019-03 No Notes: Wale alejandro ne 0-28 Concentrat l 14:51: ion: [place] 00 4mg/ml Naproxen 2019-03 No 220 mg = 1 Mem oria sodium 220 0-28 tab, PO, l MG Oral 03:54: Q8H, PRN Zuhair n Tablet 00 for [Aleve] headache, # 40 tab, 0 Refill(s) metoprolol 2019-03 Yes 50 mg = 1 Me moria 50 mg oral 0-28 tab, PO, l tablet, 03:54: Daily, # Zuhair n extended 00 30 tab, 0 release Refill(s) levothyroxi 2019-03 Yes 100 Memori a ne 100 mcg 0-28 microgram l (0.1 mg) 03:54: = 1 tab, Ashley nn oral tablet 00 PO, Daily, # 30 tab, 0 Refill(s) amLODIPine 2019-03 No 5 mg = 1 Mem oria 5 mg oral 0-28 tab, PO, l tablet 03:54: Bedtime, # Ashley nn 00 90 tab, 1 Refill(s) olmesartan 2019-03 No 20 mg = 1 Me moria 20 mg oral 0-28 tab, PO, l tablet 03:54: Bedtime, # Ashley nn 00 30 tab, 0 Refill(s) Lovenox 2019-03 No Notes: Memoria 0-28 (Same as: l 02:00: Lovenox) Nathan 00 albuterol 2019-03 No 2 puff, Memor ia 90 mcg/inh 0-28 Route: l inhalation 01:00: INHALATION H ermann aerosol 00 , Drug Form: AERO/A, Dosing Weight 90.909, kg, RQ6H, Start date: 01/01/20 20:00:00 CDT, Duration: 30 day, Stop date: 01/31/20 14:00:00 RESPITE CARE PROVIDER, 0 Codeine 2019-03 No Notes: Memoria Phosphate 2 0-27 (Same As: l MG/ML / 23:00: Robitussin Herm ama Guaifenesin 00 AC) 60 MG/ML Oral Solution Dexamethaso 2019-03 No Notes: Wale alejandro ne 0- Concentrat l 21:50: ion: 4mg/ml normal 2019-03 No 1,000 mL, Memori a saline 0.9% 0 Rate: 125 l IV 1,000 mL 21:49: ml/hr, Infuse over: 8 hr, Route: IV, Dosing Weight 90.909 kg, Total Volume: 1,000, Start date: 01/01/20 16:49:00 CDT, Duration: 8 hr, Stop date: 01/02/20 0:48:00 CDT, 2.11, m2, 0 Acetaminoph 2019-03 No Notes: Do M emoria en 0- not exceed l 21:47: 4 gm/day. (Same as: Tylenol) Docusate 2019-03 No Notes: Memoria 0-27 (Same as: l 21:47: Colace) (Do Not Crush) Zofran 2019-03 No Notes: Memoria 0-27 (Same as: l 21:47: Zofran) Nathan 00 MEDICATION WASTE Product Size: 4 mg Product Wasted: ___ mg Morphine 2019-03 No Notes: Memoria 0-27 (Same l 20:49: as:MORPhin e Sulfate) Ondansetron 2019-03 No Notes: Wale alejandro 0-27 (Same as: l 20:49: Zofran) MEDICATION WASTE Product Size: 4 mg Product Wasted: ___ mg Tessalon 2019-03 No 200 mg, Memori a Perles 0-27 Route: PO, l 19:59: ONCE, Dosing Weight 90.909, kg, Start date: 01/01/20 14:59:00 CDT, Stop date: 01/01/20 14:59:00 CDT amLODIPine Yes 5mg 5 mg. (NORVASC) 8-31 Anderso 10 mg 00:00: n tablet 00 donepezil Yes 23mg QD Take 23 mg [place] (ARICEPT) 7-26 by mouth Method i 23 mg 16:58: daily. st tablet 23 levothyroxi Yes 100ug QD Take 100 [place] ne 7-26 mcg by Methodi (SYNTHROID, 16:58: mouth st LEVOXYL) 23 daily. 100 mcg tablet pravastatin Yes 20mg QD Take 20 mg Hayder (PRAVACHOL) 7-26 by mouth Meth alyssa 20 MG 16:58: daily. st tablet 23 amLODIPine Yes 10mg QD Take 10 mg H outonny (NORVASC) 7-26 by mouth Method i 10 mg 16:58: daily. st tablet 23 meloxicam Yes 7.5mg QD Take 7.5 [facility] [address] (MOBIC) 7.5 7-26 mg by Methodi mg tablet 16:58: mouth st 23 daily. baclofen Yes 10mg Q.[id number] Take 10 mg Singletary (LIORESAL) 7-26 [id number] by mouth 3 Methodi 10 MG 16:58: 3D (three) st tablet 23 times a day. Donepezil Donepezil Yes MELIA 1 TAKE 1 Univers HCl - 23 MG HCl - 23 MG 4-05 [place] MBrandi TABLET ity of Oral Tablet Oral Tablet 00:00: BEDTIME [place] 00 Physici ans zolpidem 2015-0 Yes 10mg QD Take 10 mg [address] (AMBIEN) 10 7-29 by mouth Meth alyssa mg tablet 00:00: nightly as st 00 needed for sleep. escitalopra Yes 10mg QD Take 10 mg Hayder dove (LEXAPRO) 7-18 by mouth Meth alyssa 20 MG 00:00: daily. st tablet 00 metoprolol Yes 50mg QD Take 50 mg [place] succinate 7-18 by mouth Method i XL 00:00: daily. st (TOPROL-XL) 00 50 MG 24 hr tablet metoprolol 2020- No 50mg Take 50 mg MD succinate 718 -02 by mouth. Jarrell rso (TOPROL XL) 00:00: 00:00 n 50 mg 24 hr 00 :00 tablet Metoprolol Metoprolol Yes MALA 1 Q0.5D TAKE 1 Univers Succinate Succinate 3-29 HERNANDEZ TABLET ity of ER 50 MG ER 50 MG 00:00: M.[place]. [place] Oral Tablet Oral Tablet 00 DAILY Physici Extended Extended ans Release 24 Release 24 Hour Hour citalopram Yes 40mg QD Take [address] (CELEXA) 40 7-10 by mouth Luke s - MG tablet 12:07: daily. Medica [address] finasteride Yes 5mg QD Take [address] (PROSCAR) 5 7-10 by mouth Luke s - mg tablet 12:07: daily. Medica [address] amantadine Yes 100mg Q.5D Take [address] HCl 7-10 mg by [facility] - (SYMMETREL) 12:07: mouth 2 Med ical 100 mg 12 (two) Center capsule times daily. metoprolol Yes 50mg QD Take [address] (LOPRESSOR) 7-10 by mouth Luke s - 50 MG 12:07: daily. Medical tablet 12 [place] irbesartan Yes 75mg QD Take [address] (AVAPRO) 75 7-10 by mouth Luke s - MG tablet 12:07: nightly. [address] alfuzosin Yes 10mg QD Take [address] (UROXATRAL) 7-10 by mouth Luke s - 10 mg 24 hr 12:07: [facility] tablet 12 [place] zolpidem Yes 5mg Take [address] (AMBIEN) 5 7-10 by mouth [facility] - MG tablet 12:07: every Medical 12 night as Center needed for Insomnia. pantoprazol Yes 20mg Q.5D Take [address] e 7-10 by mouth 2 [facility] - (PROTONIX) 12:07: (two) Medica l 20 MG 12 times Center tablet daily. amLODIPine Yes 5mg QD Take [address] (NORVASC) 5 7-10 by mouth Luke s - MG tablet 12:07: daily. Medica l [address] [place] zolpidem 2015-0 Yes 10mg Take 10 mg MD JENKINS) 10 4-01 by mouth. And erso mg tablet 00:00: n 00 Zolpidem Zolpidem 2013- Yes ELIAZAR NIX TAKE 1 Univers Tartrate 10 Tartrate 10 [...] Tablet Tablet Physici ans Escitalopra Escitalopra Yes MELIA TAKE 1 Univers m Oxalate m Oxalate DUPONT M.D. TABLET BY ity of 20 MG Oral 20 MG Oral MOUTH [place] Tablet Tablet DAILY Physici ans Immunizations Ordered Immunization Filled Immunization Date Status Commen ts Source Name Name [employer] 2020-04-24 Completed Universit y of COVID-19 Vacc 30 00:00:00 [place] [facility] MCG/0.3ML Intramuscular Suspension Vital Signs Vital Name Observation Time Observation Value Comments Source Body height 2020-06-12 68 [in_us] [facility] 14:34:00 [place] [facility] s Weight 2020-06-12 200 [lb_av] [facility] 14:34:00 [place] [facility] s Body mass index 2020-06-12 30.41 kg/m2 [place] (BMI) [Ratio] 14:34:00 [place] Physicia ns Body temperature 2020-06-12 97.3 [degF] Method: [facility] 14:34:00 Temporal [place] Physician s Systolic blood 2020-05-06 125 mm[Hg] MD Barrera pressure 19:43:51 Diastolic blood 2020-05-06 74 mm[Hg] MD Barrera pressure 19:43:51 Heart rate 2020-05-06 67 /min MD Barrera 19:43:51 Body temperature 2020-05-06 36.61 Rachael MD Barrera 19:43:51 Respiratory rate 2020-05-06 16 /min MD Barrera 19:43:51 Systolic (mm Hg) 2020-04-11 [facility] 21:23:00 Diastolic (mm Hg) 2020-04-11 [facility] H ermann 21:23:00 Temperature Oral 2020-04-11 97.9 F [facility] Kyler rmann (F) 21:23:00 Height 2020-04-11 172.72 cm Miguel Angel Moffett n 21:23:00 Weight 2020-04-11 [facility] Zuhair n 21:23:00 BMI Calculated 2020-04-11 [facility] 21:23:00 Respitory Rate 2020-02-18 [facility] 22:50:00 Systolic (mm Hg) 2020-02-18 [facility] 22:50:00 Diastolic (mm Hg) 2020-02-18 [facility] 22:50:00 Respitory Rate 2020-02-18 [facility] 22:35[facility]00 Systolic (mm Hg) 2020-02-18 [facility] 22:35:00 Diastolic (mm Hg) 2020-02-18 [facility] H ermann 22:35:00 Respitory Rate 2020-02-18 [facility] 22:20:00 Systolic (mm Hg) 2020-02-18 [facility] 22:20:00 Diastolic (mm Hg) 2020-02-18 [facility] ermann 22:20:00 Height 2020-02-18 170.18 cm Miguel Angel Moffett n 19:03:00 Weight 2020-02-18 [facility] 19:03:00 BMI Calculated 2020-02-18 [facility] 19:03:00 Systolic blood 2020-02-15 109 mm[Hg] Location: [facility] 13:21:00 Position: [place] Physician s Sitting Diastolic blood 2020-02-15 76 mm[Hg] Location: [facility] 13:21:00 Position: [place] Physician s Sitting Body height 2020-02-15 68 [in_us] [facility] 13:21:00 [place] Physician s Weight 2020-02-15 195.125 [lb_av] University o f 13:21:00 [place] Phys[place] s Body mass index 2020-02-15 29.67 kg/m2 University o f (BMI) [Ratio] 13:21:00 [place] Physicia [place] Body temperature 2020-02-15 97 [degF] Method: [facility] 13:21:00 Temporal [place] Physician s Heart Rate 2020-02-15 66 /min Location: R [facility] 13:21:00 Brachial [place] Physician s Artery; Quality: Normal Respiratory rate 2020-02-15 16 /min Quality: Normal Universi ty of 13:21:00 [place] Physician s Height 2020-02-14 172.72 cm [facility] 16:09:00 Weight 2020-02-14 [facility] 16:09:00 BMI Calculated 2020-02-14 [facility] 16:09:00 Systolic blood 2020-02-07 111 mm[Hg] Location: [facility]; [facility] 16:12:00 Position: [place] Physician s Sitting Diastolic blood 2020-02-07 69 mm[Hg] Location: [facility]; [facility] 16:12:00 Position: [place] Physician s Sitting Body height 2020-02-07 68 [in_us] [facility] 16:12:00 [place] Physician s Weight 2020-02-07 190.5 [lb_av] [facility] 16:12:00 [place] Physician s Body mass index 2020-02-07 28.97 kg/m2 University o f (BMI) [Ratio] 16:12:00 [facility] Body temperature 2020-02-07 97.1 [degF] Method: [facility] 16:12:00 Temporal [place] Physician s Heart Rate 2020-02-07 69 /min Location: [facility] 16:12:00 Brachial [place] Physician s Artery; Quality: Normal Respiratory rate 2020-02-07 16 /min Quality: Normal Universi ty of 16:12:00 [place] Physician s Temperature Oral 2020-01-03 97.6 F [facility] (F) 16:05:00 Heart Rate 2020-01-03 [facility] 16:05:00 Respitory Rate 2020-01-03 [facility] 16:05:00 Systolic (mm Hg) 2020-01-03 [facility] 16:05:00 Diastolic (mm Hg) 2020-01-03 [facility] 16:05:00 Temperature Oral 2020-01-03 97.8 F [facility] (F) 12:13:00 Heart Rate 2020-01-03 [facility] 12:13:00 Respitory Rate 2020-01-03 [facility] 12:13:00 Systolic (mm Hg) 2020-01-03 [facility] 12:13:00 Diastolic (mm Hg) 2020-01-03 [facility] 12:13:00 Temperature Oral 2020-01-03 98.2 F [facility] Kyler rmann (F) 09:02:00 Heart Rate 2020-01-03 [facility] 09:02:00 Respitory Rate 2020-01-03 [facility] 09:02:00 Systolic (mm Hg) 2020-01-03 [facility] 09:02:00 Diastolic (mm Hg) 2020-01-03 [facility] Akilah ermann 09:02:00 Height 2020-01-02 172.72 cm [facility] 03:45:00 Weight 2020-01-02 [facility] 03:45:00 BMI Calculated 2020-01-02 [facility] 03:45:00 Height 2020-01-01 172.72 cm [facility] 17:16:00 BMI Calculated 2020-01-01 [facility] 17:16:00 Weight 2020-01-01 [facility] 17:16:00 Systolic blood 2019-10-29 124 mm[Hg] Location: [facility] 16:01:00 Position: [place] Physician s Sitting Diastolic blood 2019-10-29 87 mm[Hg] Location: [facility] 16:01:00 Position: [place] Physician s Sitting Body height 2019-10-29 68 [in_us] [facility] 16:01:00 [place] Physician s Weight 2019-10-29 210.25 [lb_av] [facility] 16:01:00 [place] Physician s Body mass index 2019-10-29 31.97 kg/m2 University o f (BMI) [Ratio] 16:01:00 [place] Physicne ns Body temperature 2019-10-29 97.6 [degF] Method: [facility] 16:01:00 Tympanic [place] Physician s Heart Rate 2019-10-29 69 /min Location: [place] [facility] 16:01:00 Radial; [place] Physician s BP Systolic 2019-03-06 123 mm[Hg] [facility] 09:25:00 Position: [place] Physician s Sitting BP Diastolic 2019-03-06 79 mm[Hg] [facility]25:00 Position: [place] Physician s Sitting Height 2019-03-06 68 [in_us] [facility] 09:25:00 [place] Physician s Weight 2019-03-06 197.2 [lb_av] [facility] 09:25:00 [place] Physician s Body Mass Index 2019-03-06 29.98 kg/m2 University o f Calculated 09:25:00 [place] Physician s Temperature 2019-03-06 98.2 [degF] Method: Oral University of 09:25:00 [place] Physician s Heart Rate 2019-03-06 67 /min University of 09:25:00 [place] Physician s BP Systolic 2018-11-30 113 mm[Hg] Location: [facility]; [facility] 14:51:00 Position: [place] Physician s Sitting BP Diastolic 2018-11-30 69 mm[Hg] Location: [facility]; [place] 14:51:00 Position: [place] Physician s Sitting Height 2018-11-30 68 [in_us] University of 14:51:00 [place] Physician s Weight 2018-11-30 207.6 [lb_av] University of 14:51:00 [place] Physician s Body Mass Index 2018-11-30 31.57 kg/m2 University o f Calculated 14:51:00 [place] Physician s Heart Rate 2018-11-30 61 /min University of 14:51:00 [place] Physician s Respiration Rate 2018-11-30 17 /min University of 14:51:00 [place] Physician s BP Systolic 2017-10-12 120 mm[Hg] Location: [facility]; [place] 10:30:00 Position: [place] Physician s Sitting BP Diastolic 2017-10-12 87 mm[Hg] Location: [facility] 10:30:00 Position: [place] Physician s Sitting Height 2017-10-12 68 [in_us] University of 10:30:00 [place] Physician s Weight 2017-10-12 206 [lb_av] University of 10:30:00 [place] Physician s Body Mass Index [...] Physician s Weight 2017-06-09 214 [lb_av] University of 10:31:00 [place] Physician s Body Mass Index 2017-06-09 32.54 kg/m2 University o f Calculated 10:31:00 [place] Physician s Heart Rate 2017-06-09 62 /min University 10:31:00 [place] Physician s BP Systolic 2017-02-25 114 mm[Hg] Location: [facility]; [facility] ::00 Position: [place] Physician s Sitting BP Diastolic 2017-02-25 73 mm[Hg] Location: [facility]; [facility] ::00 Position: [place] Physician s Sitting Height 2017-02-25 68 [in_us] University ::00 [place] Physician s Weight 2017-02-25 219 [lb_av] University :31: [place] Physician s Body Mass Index 2017-02-25 33.3 kg/m2 University o f Calculated 12:31:00 [place] Physician s Heart Rate 2017-02-25 60 /min [facility] :: [place] Physician s Respiration Rate 2017-02-25 18 /min Quality: Normal Universi [facility] 12:31:00 [place] Physician s BP Systolic 2017-02-08 124 mm[Hg] [facility] 09:31:00 [place] Physician s BP Diastolic 2017-02-08 84 mm[Hg] [facility] 09:31:00 [place] Physician s Weight 2017-02-08 210 [lb_av] University 09:31:00 [place] Physician s Body Mass Index 2017-02-08 31.93 kg/m2 University o f Calculated 09:31:00 [place] Physician s Respiration Rate 2017-02-08 18 /min [facility] :31:00 [place] Physician s Heart Rate 2017-02-08 61 /min [facility] 09:31:00 [place] Physician s Procedures Procedure Date / Time Performing Clinician Source Performed CT ENTEROGRAPHY 2020-05-20 15:07:04 [facility] POC CREATININE 2020-05-20 14:14:00 [facility] ESTIMATED GFR 2020-05-20 14:14:00 [facility] [N] Nuclear Stress Test 2020-02-08 00:00:00 [facility] Myocardial Perfusion Physicians Study with [employer] 01542 [N] 2D Echo complete, 2020-02-07 00:00:00 [facility] with Doppler [id number] Brain wo contrast 2017-02-22 00:00:00 [facility] [id number] Physicians Pacemaker care [facility] Planned Activity Planned Date Details Comments Source Future Scheduled 2020-10-05 INFLUENZA VACCINE [place] [facility] 00:00:00 [code = INFLUENZA VACCINE] Future Scheduled 2020-05-15 COVID-19 VACCINE (2 - [place] [facility] Test 00:00:00 Pfizer 2-dose series) [code = COVID-19 VACCINE (2 - Pfizer 2-dose series)] Diagnostic Test 2020-02-08 [N] Nuclear Stress [facility] Pending 00:00:00 Test Myocardial Physicians Perfusion Study with [employer] 16436 [code = [N] Nuclear Stress Test Myocardial Perfusion Study with [employer] 36883] Diagnostic Test 2020-02-07 [N] 2D Echo complete, [facility] Pending 00:00:00 with Doppler 02411 Physician s [code = [N] 2D Echo complete, with Doppler 52713] Future Scheduled 2019-01-02 65+ PNEUMOCOCCAL [place] [facility] Test 00:00:00 VACCINE (3 of 4 - PPSV23) [code = 65+ PNEUMOCOCCAL VACCINE (3 of 4 - PPSV23)] Diagnostic Test 2017-02-22 CT Brain wo contrast [facility] Pending 00:00:00 73264 [code = 89337] Physici ans Future Scheduled 2002-02-02 COLONOSCOPY SCREENING [place] usp[place]ep [facility] Test 00:00:00 [code = COLONOSCOPY SCREENING] Future Scheduled 2002-02-02 SHINGLES VACCINES [place] [facility] 00:00:00 (#1) [code = SHINGLES VACCINES (#1)] Future Scheduled 1970-02-02 Hepatitis C screening [place] uspardeep [facility] Test 00:00:00 (procedure) [code = 762641044] Future Appointment 2020-10-27 Panda MEDEIROS [facility] 12:20:00 Bernarda HERNANDEZ Future Appointment 2020-08-15 Panda MEDEIROS [facility] 12:20:00 Bernarda HERNANDEZ Encounters Start End Encounter Admission Attending Care Care Encounter Source Date/Time Date/Time Type Type Clinicians Facility Department ID 2020-07-12 Outpatient DAVID [facility] [id number] [place] 03:21:45 MALA [facility] 2020-07-12 Outpatient DAVID [facility] [id number] [place] 03:21:45 [facility] 2020-06-12 2020-06-12 Appointmen PB PIERSON, DYLAN [facility] [id number] Univers 14:15:00 14:15:00 t; Panda PIERSON yngology - i ty of Panda AMBRIZ [facility] Physici [facility] 2020-05-27 2020-05-28 Outpatient MHMISCHER MHMISCHER [id number] 14:36:16 23:59:59 2020-05-24 2020-05-[address] [facility] [id number] 10:35:00 23:59:00 Melia 2020-05-24 2020-05-24 Outpatient MHTW MHTW [id number] MHTW 10:35:00 10:35:00 2020-05-22 2020-05-23 Outpatient MHMISCHER MHMISCHER [id number] 10:30:37 23:59:59 2020-05-20 2020-05-21 Outpatient MHMISCHER MHMISCHER [id number] 10:42:35 23:59:59 2020-05-20 2020-05-20 [id number] [place] 00:00:00 00:00:00 TAVON [facility] 2020-05-06 2020-05-06 Outpatient ANA PAULA BENTLEY MDA [facility] [id number] 13:25:06 14:22:49 GRAHAM riley 2020-04-28 2020-04-29 Outpatient MHMISCHER MHMISCHER [id number] 16:51:01 23:59:59 2020-04-24 2020-04-24 Appointmen CO19, UTP UTP [id number] Univers 13:50:00 13:50:00 t; CO19, NURSE-COOLJaciel i ty of NURSE-AGATA Porter [facility] 2020-04-16 2020-04-16 Outpatient SONJA Dupont31 [id number] 12:14:00 23:59:00 Melia Lisbeth 2020-04-11 2020-04-11 Outpatient SONJA DupontMISCHER MHMISCHER [id number] 15:30:00 23:59:59 Melia 00 Lisbeth 2020-04-03 2020-04-03 Appointmen CO19, [facility] UTP [id number] Univers 11:00:00 11:00:00 t; CO19, NURSE-COOLE i ty of NURSE-COOL Y [place] EY Physici ans 2020-02-18 2020-02-[address] [facility] [id number] 12:39:00 17:00:00 Saif Fljerricaeh 02 2020-02-18 2020-02-18 Outpatient MHTW MHTW [id number] MHTW 12:39:00 12:39:00 2020-02-15 2020-02-15 [facility] [id number] Univers 14:00:00 14:00:00 t; Panda MEDEIROS it y [place], [place] Arben MEDEIROS M.D. ans 2020-02-15 2020-02-15 [facility] Multispecia [id number] Univers 09:30:00 09:30:00 t; NUCLEAR lty - ity of [facility] NUCLEAR Physici ans 2020-02-11 2020-02-[address] [facility] [id number] 13:39:00 23:59:00 Amarbir 42 [place] 2020-02-11 2020-02-11 Outpatient MHTW PUL [id number] MHTW 13:39:00 13:39:00 2020-02-07 2020-02-07 [facility] Multispecia [id number] Univers 16:00:00 16:00:00 t; Panda MEDEIROS lty - The ity of [facility] MALA, [address] Physicbhanu Mosqueda ans 2020-02-07 2020-02-07 [facility] [id number] Univers 16:00:00 16:00:00 t; ECHO ity of [place], [place] ECHO Physici ans 2020-01-01 2020-01-[address] [facility] [id number] 12:10:22 16:30:00 Barkatali 00 2020-01-01 2020-01-03 Outpatient Bandeali [facility] [id number] 12:10:22 16:30:00 Barkatali 00 2019-10-29 2019-10-29 AppointDYLAN K[facility] [id number] Univers 16:00:00 16:00:00 t; Panda MEDEIROS [facility] MEDEIROS M.D. ans 2019-10-04 2019-10-04 Outpatient MICHAEL VILLARREAL MDA MDA [id number] 00:00:00 00:00:00 Baljeetjaquan riley 2019-06-27 2019-06-27 Outpatient ANA PAULA GUILLAUME MDA MDA [id number] 08:14:13 08:14:25 INGRAM Nirav riley 2019-03-28 2019-03-28 DYLAN Amezcua [facility] [id number] Univers 15:15:00 15:15:00 t; NETTA MOCTEZUMA, i ty of [facility] ans 2019-03-06 2019-03-06 DYLAN Amezcua [facility] [id number] Univers 09:15:00 09:15:00 t; NETTA MOCTEZUMA, yngology - ity of Panda [place] [facility] Physici Nice ans 2019-03-04 2019-03-[address] [id number] 12:18:00 12:18:00 2019-02-05 2019-02-05 DYLAN Phelps UTP [id number] Univers 16:20:00 16:20:00 t; Panda MED[place]IROS [place] Arben MEDEIROS M.D. ans 2019-01-21 2019-01-21 Emergency E MHNE MHNE [id number] MHNE 16:32:00 16:32:00 2018-11-30 2018-11-30 DYLAN Aguilar Neurology - [id number] Univers 14:30:00 14:30:00 t; MELIA DUPONT [place] ity of Panda GAR[facility] Nice Physici ans 2018-11-02 2018-11-02 DYLAN Barnard [facility] [id number] Univers 08:30:00 08:30:00 t; Marine LINARES, PHD [place] Tenzin LINARES PHD ans 2018-06-14 2018-06-14 AppointDYLAN Caputo Neurology [id number] Univers 14:30:00 14:30:00 t; MELIA DUPONT ity of [place], M.D. [facility] ans 2018-02-24 2018-02-24 Appointrosa HERNANDEZ [facility] [id number] Univers 13:00:00 13:00:00 t; Panda MEDEIROS [place] DAVID, Physici M.D. ans 2018-02-22 2018-02-22 AppointDYLAN Caputo Neurology [id number] Univers 10:00:00 10:00:00 t; MELIA DUPONT ity of [place], M.D. [place] M.D. Physici ans 2017-10-12 2017-10-12 AppointDYLAN Caputo Neurology [id number] Univers 10:00:00 10:00:00 t; MELIA DUPONT ity of [place], M.D. [place] Brandi Physici ans 2017-06-09 2017-06-09 AppointDYLAN Caputo Neurology [id number] Univers 10:00:00 10:00:00 t; MELIA DUPONT ity of [place], M.D. [place] M.D. Physici ans 2017-02-25 2017-02-25 Appointrosa HERNANDEZ [place] [id number] Univers 12:00:00 12:00:00 t; Panda MEDEIROS Specialty [place] as Arben MEDEIROS M.D. ans 2017-02-08 2017-02-08 AppointDYLAN Caputo Neurology [id number] Univers 09:30:00 09:30:00 t; MELIA DUPONT ity of [place], M.D. [place] M.D. Physici ans 2017-02-07 2017-02-07 AppointDYLAN Caputo [facility] [id number] Univers 11:30:00 11:30:00 t; MELIA DUPONT ity of [place], M.D. [place] M.D. Physici ans 2016-10-07 2016-10-07 Appointrosa DUPONT DYLAN [facility] [id number] Univers 15:30:00 15:30:00 t; MELIA DUPONT ity of [place], M.D. [place] M.D. Physic ans 2015-11-28 2015-11-28 Appointrosa HERNANDEZ [facility] [id number] Univers 12:40:00 12:40:00 t; Panda MEDEIROS y of [place] HERNANDEZ Physici M.D. ans 2015-10-03 2015-10-03 [facility]rosa [facility] [id number] Univers 15:40:00 15:40:00 t; Panda MEDEIROS of [place] HERNANDEZ Physici M.D. ans 2015-09-04 2015-09-04 Appointrosa DUPONT DYLAN Neurology [id number] Univers 10:30:00 10:30:00 t; MELIA DUPONT ity of [place], M.D. [place] [facility]. [facility] 2015-07-18 2015-07-18 [facility] [id number] Univers 11:40:00 11:40:00 t; Panda MEDEIROS y of [place] HERNANDEZ Physici M.D. [facility] 2015-04-02 2015-04-02 Appointrosa DUPONT DYLAN [facility] [id number] Univers 14:30:00 14:30:00 t; MELIA DUPONT ity of [place], M.D. [place] M.D. [facility] Results Test Description Test Test Results Result Source Time Comments Comments CT Enterography 2020-05- [facility], Radiology [place] 16 Results Incoming - Method ist 15:40:20 05/20/2020 3:43 PM CDT EXAMINATION: CT ENTEROGRAPHYCLINICAL HISTORY: K50.90 Crohn's disease unspecified without complications, R63.4 Abnormal weight loss, K50.90 R63.4TECHNIQUE: Multiple axial images of the abdomen and pelvis were obtained during intravenous administration of iodinated contrast. Low density oral contrast was administered (CT enterography protocol). Sagittal and coronal computerized reformatted images were also obtained.CT imaging was performed with iterative reconstruction techniques and/or automated exposure control to reduce radiation dose.COMPARISON: 01/26/2019FINDINGS:No evidence of bowel thickening, hyperenhancement, or adjacent stranding to indicate active inflammation. Terminal ileum appears normal. No obstruction.Normal appendix.Extensive diverticulosis in the distal colon without evidence of diverticulitis.No free fluid, abscess, or free air. No evidence of fistula.Liver is normal in size and contour without mass. Cholecystectomy. Normal pancreas.Stable borderline splenomegaly.Normal kidneys and adrenal glands.Aorta is mildly calcified and normal in caliber. Celiac trunk and mesenteric arteries are widely patent.No lymphadenopathy.Enlarged prostate with possible small TURP defect. Since Osseous structures intact.IMPRESSION:No evidence of active Crohn's disease or other acute process.Distal colon diverticulosis without diverticulitis.Normal appendix.[id number] [address]M PANEL [address] 17:12:00 [address]M [address] 17:12:00 CHEM PANEL 8.2 [place] [address] Nathan 17:12:00 CHEM PANEL 59 [place] [address] [place] 17:12:00 HEMATOLOGY 8.3 [place] [address] Nathan 17:12:00 HEMATOLOGY 4.78 [place] [address] Nathan 17:12:00 HEMATOLOGY 14.4 [place] [address] Nathan 17:12:00 HEMATOLOGY 42.0 [place] [address] Nathan 17:12:00 HEMATOLOGY 87.7 [place] [address] Nathan 17:12:00 HEMATOLOGY 2020-02-14 17:12:00 Test Item Value Reference Range Interpretation Comme nts MCH (test code = MCH) 30.1 pg 27.0-31.0 [facility] IszffdzHRPYMHXEZA3690-46-02 17:12:0034.3[facility] 2020-02-14 17:12:0013.8[facility] OfbodfzCHXAOYKPNI0648-88-41 17:12:96051Okqpxmek ZvpozpaOWXJNYAKND5900-01-35 17:12:008.7[facility] KznsconWJKDPOTGYU4121-53-54 17:12:00Normal (02/14/20 11:12 AM)[facility] MyxkcydMTQYYFCMQN2101-16-90 17:12:00 Normal (02/14/20 11:12 AM)[facility] DwnplzhFARJEAUTSX1257-66-48 17:12:0061.7 Memorial NcoussyWGXLDOPQJM8430-42-54 17:12:0028.8[facility] HermannHEMATOLOGY 2020-02-14 17:12:007.6[facility]orial IgvkvaqLIUPPQKOFZ4188-10-26 17:12:001.0[facility]orial TeppqswXDWXWUNZIC6731-90-46 17:12:000.9[facility]orial NhgsxmkSVRWKFYAYB8214-87-92 17:12:005.1[facility]orial EktrzeyGMYHIZQYFG1176-90-65 17:12:002.4[facility] [place] RLCADSUGKZ9173-59-28 17:12:000.6[facility]orial BxpxwbgIGWZUPXESD3375-44-16 17:12:000.1 Memorial OlqdgsiMESQKHBMVW6775-93-04 17:12:000.1[facility] HermannCHEM PANEL 2020-02-14 17:12:0099Mem[facility] HermannCHEM MERRI5025-88-67 17:12:0021Mem[facility] HermannCHEM DROKJ6863-92-50 17:12:001.25[facility] HermannCHEM BQJOZ9878-03-19 17:12:85559Cgpckxyx HermannCHEM UVXZQ6021-95-64 17:12:004.2[facility] HermannCHEM MXBZF0012-65-81 17:12:37781Nogxsbhq HermannCHEM ANUOI1535-11-05 07:29:62845 [facility] HermannCHEM TOUGQ0412-18-52 07:29:0019[facility] HermannCHEM PANEL 2020-01-03 07:29:001.17[facility] HermannCHEM YVFPN4129-36-87 07:29:72541Uumsuqmk HermannCHEM SCHAA1198-71-09 07:29:004.0[facility] HermannCHEM ERGXH9614-73-50 07:29:92396Itggiguu HermannCHEM QLIEE3566-16-93 07:29:0024Mem[facility] HermannCHEM KJJXY0448-66-01 07:29:008.6[facility] HermannCHEM CXVMP3187-14-81 07:29:007.3 [facility] HermannCHEM ZUARC9779-95-86 07:29:003.0[facility] HermannCHEM PANEL 2020-01-03 07:29:0042Mem[facility] HermannCHEM VMGSY0048-94-66 07:29:0046Mem[facility] HermannCHEM PWVYZ8205-83-73 07:29:0057Mem[facility] HermannCHEM HMOCA6670-80-46 07:29:000.6[facility] HermannCHEM UFBKT1664-88-56 07:29:0010.0[facility] HermannCHEM ZEWQJ6896-19-66 07:29:00 Test Item Value Reference Range Interpretation Comments B/C Ratio (test code = B/C Ratio) 16 1 6-25 [facility] HermannCHEM OKRQP1680-75-19 07:29:004.3[facility] HermannCHEM PANEL 2020-01-03 07:29:00 Test Item Value Reference Range Interpretation Comments A/G Ratio (test code = A/G Ratio) 0.7 1 0.7-1.6 [facility] HermannCHEM IEUWV3801-53-97 07:29:0064[facility] HermannCHEM PANEL 2020-01-03 07:29:17440Wslvjxqn HittchbBZHIIGHRCT0539-30-28 07:29:000.77Memorial FyyifmdIQOLEQTWLC5095-73-03 07:29:0094.9[facility] HermannCARDIAC ENZYMES 2020-01-02 08:15:90404Envcujcc HermannCHEM RAPGX7394-27-21 08:15:43302Zppgobex HermannCHEM UWWJG8809-31-97 08:15:0027[facility] HermannCHEM JEGOO4239-94-41 08:15:001.55[facility] HermannCHEM RFKDB4408-96-91 08:15:38713Brkizvhg HermannCHEM YLRUO2776-56-00 08:15:004.9[facility] HermannCHEM BEWQS4580-31-88 08:15:52192 [facility] HermannCHEM ECMEY8856-23-28 08:15:0024[facility] HermannCHEM PANEL 2020-01-02 08:15:0011.9[facility] HermannCHEM MJJGC5524-61-19 08:15:008.5[facility] HermannCHEM GTMZQ0919-92-56 08:15:0046Memorial WlpseihZXILNOHCCF2497-98-83 08:15:82231.0Memorial HermannANEMIA YQMLG7164-51-16 23:11:58431Dmbchohc [place] CARDIAC OFXMCHB6612-45-45 23:11:765321Lxltyzvm HermannCHEM CBDEI9257-88-47 23:11:70161Tyythgzb HermannCHEM SENCW2199-95-34 23:11:0027Mem[facility] HermannCHEM RSDTY7023-54-25 23:11:001.56Mem[facility] HermannCHEM HLAGI5951-97-75 23:11:39555 [facility] HermannCHEM KFGZB7860-40-79 23:11:003.7[facility] HermannCHEM PANEL 2020-01-01 23:11:40221Wzyymkdr HermannCHEM PEBCQ2108-62-68 23:11:0023Mem[facility] HermannCHEM EBOYO7251-24-63 23:11:0010.7[facility] HermannCHEM UXROT6225-43-38 23:11:007.9[facility] HermannCHEM DNZOG9023-15-82 23:11:0045[facility] [place] CFNCOLIZYX9775-53-11 23:11:008.7Memorial UcdcytuYMWPAPFWXT3179-12-61 23:11:00 4.68Memorial LzjoqemLTMNCPJNIB5581-23-08 23:11:0014.0[facility] HermannHEMATOLOGY 2020-01-01 23:11:0040.4Memorial SxesdgtHQZLWSFKGE2860-29-62 23:11:0086.4[facility] YlartppUBYHLMEATM1836-47-62 23:11:00 Test Item Value Reference Range Interpretation Comments MCH (test code = MCH) 30.0 pg 27.0-31.0 [facility] QwwflsmBKRKAJXPGJ4204-27-93 23:11:0034.7[facility]annHEMATOLOGY 2020-01-01 23:11:0012.9[facility] SnqkrrhLIZDBUURCO6689-71-51 23:11:65639Yndeftmj IfgvpenSNHXJHWSRH7302-36-37 23:11:008.9[facility] ZqsahxpADWXUJCIAX5647-35-48 23:11:001.83[facility] QbtinmcJDQWVIAJTV8524-11-55 23:11:0083.6[facility] SFOEGRNXOU3179-50-00 23:11:0011.8[facility] YcmypadDRHRGLHFUO7462-91-07 23:11:00 4.2[facility] JnzftquJAFDHCMKLI3377-68-57 23:11:000.4[facility]annHEMATOLOGY 2020-01-01 23:11:007.3[facility] FpoaimtCNHLDOWFJL6770-85-39 23:11:001.0[facility] KdabvcwVDXWNJFYFZ0618-91-93 23:11:000.4[facility] HermannCARDIAC IVJRZBS2260-36-82 18:22:565906Nuprxikl HermannCARDIAC RNYRRPN2096-35-23 18:22:000.06[facility]annCHEM XHHQS4668-87-24 18:22:007.6[facility]annCHEM WRBUA8922-24-08 18:22:003.5[facility] HermannCHEM FHBSF5476-33-49 18:22:0048[facility] HermannCHEM [id number] 18:22:0072[facility]annCHEM [id number] 18:22:0065 [facility]ann[facility] [id number] 18:22:001.2[facility]annCHEM PANEL 2020-01-01 18:22:00 Test Item Value Reference Range Interpretation Comments B/C Ratio (test code = B/C Ratio) 17 1 6-25 [facility]annCHEM [id number] 18:22:004.1[facility] HermannCHEM PANEL 2020-01-01 18:22:00 Test Item Value Reference Range Interpretation Comments A/G Ratio (test code = A/G Ratio) 0.9 1 0.7-1.6 [facility]ann[facility] [id number] 18:22:04915Svhbvwvx HermannHEMATOLOGY 2020-01-01 18:22:009.1[facility] EkiebwkTGPNFJPQPP0026-06-47 18:22:004.82[facility] NddhcwvFVNYIWLQJD1387-38-70 18:22:0014.5[facility] RliknbdBUAPFBPFEK7692-20-91 18:22:0041.8[facility] CmbaanmQLHSVFTOEE4756-72-85 18:22:0086.7[facility] BYDCCFQSZC2873-87-54 18:22:00 Test Item Value Reference Range Interpretation Comments MCH (test code = MCH) 30.0 pg 27.0-31.0 [facility] CtfpindFJHIUHNQET1721-34-11 18:22:0034.7[facility] HermannHEMATOLOGY 2020-01-01 18:22:0013.0[facility] JhoxsvoOTGJCDVREW9467-05-32 18:22:60802Lgvsqkrn GtslzjyHPPHEXATXS5469-64-59 18:22:008.6[facility] ZnjtigvNJRYIWHUJY9257-02-52 18:22:0085.3[facility] PjkxttpQQZJVQNQTA3371-09-27 18:22:009.5[facility] PXAKBJXXZM8066-15-64 18:22:004.9[facility] UdnzrbcLVMWFNQGGX0536-76-72 18:22:000.3 [facility] TegsluzVHDFFKFUOL3678-72-69 18:22:007.8[facility] HermannHEMATOLOGY 2020-01-01 18:22:000.9[facility] UujkhnbAQKCILOBFQ1916-90-20 18:22:000.4[facility] AzriehlTIIWVGSWWV0138-16-98 18:22:00Detected 4*ABN*(01/01/20 1:22 PM)[facility] ImximrgZOZEOQCUGJ4664-00-32 18:22:28175.0[facility]] FOLATE, SERUM 2018-06-14 16:03:01 Test Item Value Reference Range Interpretation Comments Folate Level (test code = 2284-8) 15.1 ng/ml >=3.0 [facility][QL] T3 [id number] 16:03:01 Test Item Value Reference Range Interpretation Comments T3 Uptake (test code = 3050-2) 37 % 31-39 [facility][QL] T4, TOTAL (THYROXINE)2018-06-14 16:03:01 Test Item Value Reference Range Interpretation Comments Thyroxine (test code = 3026-2) 8.8 ug/dL 4.7-13.3 [facility]] TSH, 3RD [id number] 16:03:01 Test Item Value Reference Range Interpretation Comments TSH (test code = 38138-1) 1.490 {uIU/ml} 0.360-3.740 [facility]] VITAMIN [id number] 16:03:01 Test Item Value Reference Range Interpretation Comments Vitamin B12 Level (test code = 391 pg/ml 254-1320 2132-9) [facility][] Free Thyroxine [id number] 16:03:01 Test Item Value Reference Range Interpretation Comments Free Thyroxine Index (test code = 3.3 87105-4) [facility]] HEMOGLOBIN [id number] 16:03:01 Test Item Value Reference Range Interpretation Comments Hemoglobin A1c (test code = 4548-4) 5.4 % <=5.6 [facility]] VITAMIN D, 25-HYDROXY, LC/MS/[id number] 16:03:01 Test Item Value Reference Range Interpretation Comments Vitamin D, 25-OH, 26.9 ng/ml 30.0-100.0 Reference range is based Total (test code on recommen dations in the = Vitamin D, EndocrineSociet y Clinical 25-OH, Total) Practice Guide line (J Clin Endocrinol Lnwwx7956;96:19 11-1930) [facility]] VITAMIN [id number] 16:03:01 Test Item Value Reference Range Interpretation Comments Vitamin B6 6.8 {UG/L} 5.3-46.7 This test was d eveloped and its Level (test performance code = characteristics determined by Vitamin B6 [facility]. It has not been Level) cleared orappro greg by the Food and Drug Administration. Performed At: [facility] [id number] [facility] [place], [place] [id number] ra Carlos ADAME Ph:[phone] [facility]] VITAMIN D, 1,25 DIHYDROXY LC/MS/[id number] 16:03:01 Test Item Value Reference Range Interpretation Comments Vitamin D 1,25 (OH)2 38 pg/ml Referen ce Range:Adults: Total (test code = 21 - 65 Vitamin D 1,25 (OH)2 Total) Vitamin D2 1,25 (OH)2 <10 (test code = Vitamin D2 1,25 (OH)2) Vitamin D3 1,25 (OH)2 38 pg/ml Perfor med At: ES (test code = Vitamin Esoteri x [id number] Lost D3 1,25 (OH)2) [place], [place] [id number] paul Isbell MD Ph:[phone] [facility] Brain wo contrast [id number] 07:13:00 Clinical Indication: - G93.0 Cerebral cystsComparison: [...] subacute stroke. There is no arachnoid cyst.SL: BBANGELA-MADALYN--Read by: Gilson Roland MDDictated Date/time: 03/03/17 08:18Electronically Signed by: Gilson Roland MD 03/03/1708:20FINAL [facility]PORTUn[facility]] CBC (INCLUDES DIFF/PLT)2017-02-25 12:50:01 Test Item Value Reference Range Interpretation Comments WBC (test code = WBC) 7.4 {K/CMM} 3.7-10.4 RBC (test code = RBC) 5.08 {M/CMM} 4.70-6.10 Hgb (test code = 24222-2) 16.3 g/dl 14.0-18.0 Hct (test code = 4544-3) 47.1 % 42.0-54.0 MCV (test code = MCV) 92.6 fL 80.0-94.0 MCH (test code = MCH) 32.0 pg 27.0-31.0 MCHC (test code = MCHC) 34.5 g/dl 32.0-36.0 RDW (test code = RDW) 13.8 % 11.5-14.5 Platelet (test code = 777-3) 249 {K/CMM} 133-450 Mean Platelet Volume (test code 9.1 fL 7.4-10.4 = Mean Platelet Volume) [facility]] Vrltmzdnjzhk1220-19-95 12:50:01 Test Item Value Reference Range Interpretation Comments Segmented Neutrophils (test code 61.9 % 45.0-75.0 = 47587-6) Monocytes # (test code = 67564-6) 0.7 {K/CMM} 0.0-0.8 Lymphocytes (test code = 26.2 % 20.0-40.0 Lymphocytes) Eosinophils # (test code = 0.1 {K/CMM} 0.0-0.5 71120-0) Basophils # (test code = 49113-0) 0.1 {K/CMM} 0.0-0.2 Segs-Bands # (test code = 4.6 {K/CMM} 1.5-8.1 48113-7) Lymphocytes # (test code = 1.9 {K/CMM} 1.0-5.5 45241-9) [facility]] CMP [id number] 12:50:01 Test Item Value Reference Range Interpretation [...] t the Lvl) clinical guidel inesof the [place] [employer] es [employer]. Creatinine Lvl 1.30 mg/dl 0.50-1.40 (test code = Creatinine Lvl) Blood Urea 8 mg/dl 7-22 Nitrogen (test code = Blood Urea Nitrogen) BUN/Creatinine 6 6-25 Ratio (test code = BUN/Creatinine Ratio) Total Protein 7.9 g/dl 6.4-8.4 (test code = 76539-4) Albumin Lvl (test 4.2 g/dl 3.5-5.0 code = 1751-7) Globulin (test 3.7 g/dl 2.7-4.2 code = Globulin) A/G Ratio (test 1.1 0.7-1.6 code = A/G Ratio) Calcium Level 8.6 mg/dl 8.5-10.5 Total (test code = Calcium Level Total) ALT (test code = 40 u/l 0-65 1742-6) AST (test code = 25 u/l 0-37 1916-6) Bili Total (test 1.0 mg/dl 0.2-1.3 code = 92053-1) Alk Phos (test 67 u/l 39-136 code [...] be multiplied by t he estimated BMI. [facility]] LIPID [id number] 12:50:01 Test Item Value Reference Range Interpretation Comments Chol (test code = Chol) 189 mg/dl <=199 Trig; Above High Threshold (test 224 mg/dl <=149 code = 2571-8) HDL Cholesterol (test code = HDL 33 mg/dl >=61 Cholesterol) CHD Risk (test code = CHD Risk) 5.73 4.00-7.30 LDL (test code = LDL) 111 mg/dl <=99 VLDL (test code = VLDL) 45 [facility]] T4, TOTAL (THYROXINE)2017-02-25 12:50:01 Test Item Value Reference Range Interpretation Comments Thyroxine (test code = Thyroxine) 6.9 ug/dL 4.7-13.3 [facility]] TSH, 3RD [id number] 12:50:01 Test Item Value Reference Range Interpretation Comments TSH (test code = 03624-0) 2.600 {uIU/ml} 0.360-3.740 [facility]] HEMOGLOBIN [id number] 12:50:01 Test Item Value Reference Range Interpretation Comments Hemoglobin A1c (test code = 4548-4) 5.0 % <=5.6 [facility]
[2020-08-03 11:58] LABS: Absolute Lymphocytes (CBC) 0.5 K/uL (0.7-4.9); Basophils % 0.5 % (0-1.3); Hematocrit 45.1 % (39.6-49.0); Lymphocytes % 6.7 % (15.3-44.8); MPV 9.8 fL (7.6-11.3); RBC Red Blood Cell Count 4.98 M/uL (4.33-5.43)
[2020-08-03] MEDS ORDERED: NA CHLORIDE 0.9% 0 ML ONE (12:06)
[2020-08-03 12:08] LABS: Protime INR 1.08
--- NOTE | 2020-08-03 12:08 | RAD REPORT ---
EXAM DESCRIPTION: RAD - Chest Single View - 08/03/2020 11:59 am CLINICAL HISTORY: fever, cough COMPARISON: AP chest January 2020 TECHNIQUE: AP portable chest image was obtained 08/03/2020 11:59 am . FINDINGS: Lung volumes are low. No peripheral mass or consolidation. Portable technique, body habitu s and shallow inspiration cause accentuated vasculature and lung markings. Pacemaker is in place. Hea rt and vasculature are normal. No measurable pleural effusion and no pneumothorax. No acute bony abno rmality seen. No acute aortic findings suspected. IMPRESSION: Limited shallow inspiration portable exam shows no significant or suspicious finding.
[2020-08-03 12:12] LABS: ALT/SGPT 66 U/L (12-78); AST/SGOT 57 U/L (15-37); Albumin 3.7 g/dL (3.4-5.0); Alkaline Phosphatase 104 U/L (45-117); Amylase 61 U/L (25-115); BUN Blood Urea Nitrogen 15 mg/dL (7-18); Bicarbonate 27 mmol/L (21-32); Bilirubin Direct 0.6 mg/dL (0-0.2); Bilirubin Total 2.3 mg/dL (0.2-1.0); CKMB Creatine Kinase MB < 1.0 ng/mL (0.3-3.6); Creatine Phosphokinase 99 U/L (39-308); Glucose Level 108 mg/dL (74-106); Lipase 128 U/L (73-393); Protein, Total 7.4 g/dL (6.4-8.2); Sodium Level 138 mmol/L (136-145); Troponin (Emerg Dept Use Only) 0.04 ng/mL (0.0-0.045)
--- NOTE | 2020-08-03 13:29 | RAD REPORT ---
EXAM DESCRIPTION: US - Abdomen Exam Limited - 08/03/2020 1:06 pm CLINICAL HISTORY: FEVER, abdominal pain COMPARISON: Abdomen Pelvis W Contrast dated 01/26/2020 FINDINGS: Gallbladder has been removed since the January 2020 study. No mass or abnormal fluid tl ection in the gallbladder fossa. Common bile duct is 5 mm with no intrahepatic dilatation. No duct st one suspected. Partially imaged liver shows suspected mild fatty infiltration. There is a slight nodular contour to the liver capsule which can be seen with hepatic parenchymal disease. IMPRESSION: Status post cholecystectomy with normal size biliary tree. No suspicion for a duct stone . Fatty infiltration and diffuse hepatic parenchymal disease are suspected. Liver is not fully evaluate d on this study.
[2020-08-03 13:31] LABS: SARS-COV-2 RT PCR NEGATIVE (NEGATIVE)
[2020-08-03 15:10] LABS: Urine Blood Negative (Negative); Urine Glucose Negative (Negative); Urine Protein 1+ (Negative); Urine Specific Gravity >=1.030 (1.005-1.030); Urine pH 5.5 (5.0-7.0)
[2020-08-03] MEDS ORDERED: ACETAMINOPHEN 325 MG TABLET ONE (16:07)
[2020-08-03 16:18] LABS: Urine Amorphous Sediment 2+ /HPF (NONE SEEN); Urine Bacteria 20-50 /HPF (NONE SEEN); Urine Mucus 3+ /HPF (NONE SEEN); Urine RBC <5 /HPF (NONE SEEN)
--- NOTE | 2020-08-03 17:50 | RAD REPORT ---
EXAM DESCRIPTION: CT - Abdomen Pelvis W Contrast - 08/03/2020 5:03 pm CLINICAL HISTORY: fever, abdominal distension COMPARISON: CT abdomen and pelvis January 2001 TECHNIQUE: Biphasic, helical CT imaging of the abdomen and pelvis was performed following 100 ml non -ionic IV contrast. Oral contrast was given. All CT scans are performed using dose optimization technique as appropriate and may include automated exposure control or mA/KV adjustment according to patient size. FINDINGS: No suspicious findings in the lung bases. The liver, spleen, and pancreas show no suspicious findings. Liver does show fatty infiltration patte rn. No portal vein abnormality. Cholecystectomy clips are present. No biliary tree dilatation. Symmetric renal function is seen with no hydronephrosis or suspicious renal mass. No pyelonephritis o r acute parenchymal process. Partially filled urinary bladder is grossly unremarkable. Prostate gland is enlarged but not clearly different from the comparison. No adrenal abnormalities. No dilated bowel loops or bowel wall thickening. A few mildly prominent small bowel loops are present . This is nonspecific but can be seen with enteritis. Patient has prominent sigmoid and descending co lin diverticulosis but no diverticulitis present. No free air, free fluid or inflammatory stranding. No mass or bulky lymphadenopathy. No suspicious bony findings. Lumbar disc and bony degenerative changes are present. IMPRESSION: Contrast enhanced CT abdomen and pelvis showing no acute or emergent finding. No significant change from January 2020 imaging.
--- NOTE | 2020-08-03 18:33 | ER ---
Nurse's Notes [facility] Name: Mathieu Stoner Age: 70 yrs Sex: Male : 1950 Arrival Date: 08/03/2020 Time: 10:20 Bed 18 Private MD: Diagnosis: Urinary tract infection, site not specified;Fever, unspecified Presentation: 08/03 10:32 Chief complaint: Patient states: Fever, malaise, body aches since . Slight ll1 cough. No N/V/D. Fever up to 103.4 at home. Coronavirus screen: Client denies travel out of the [place] in the last 14 days. chills, fatigue, fever, headache, muscle pain, shaking with chills, Client presents with at least one sign or symptom that may indicate coronavirus-19. Standard/surgical mask placed on the client. Ebola Screen: Patient denies travel to an Ebola-affected area in the 21 days before illness onset. Initial Sepsis Screen: Does the patient meet any 2 criteria? No. Patient's initial sepsis screen is negative. Does the patient have a suspected source of infection? No. Patient's initial sepsis screen is negative. Risk Assessment: Do you want to hurt yourself or someone else? Patient reports no desire to harm self or others. Onset of symptoms was July 31, 2020. 10:32 Method Of Arrival: Ambulatory ll1 10:32 Acuity: MONICO 3 ll1 Historical: - Allergies: 10:36 No Known Allergies; ll1 - PMHx: 10:36 Hypertension; ll1 - PSHx: 10:36 pacemaker; multiple joint surgeries; ll1 - Immunization history:: Client reports receiving the 2nd dose of the Covid vaccine, Flu vaccine is up to date. - Social history:: Smoking status: Patient denies any tobacco usage or history of. Screenin:00 Abuse screen: Denies threats or abuse. Nutritional screening: No deficits noted. rb3 Tuberculosis screening: No symptoms or risk factors identified. Fall Risk None identified. Assessment: 11:00 General: Appears in no apparent distress. comfortable, Behavior is calm, cooperative, rb3 Reports fever for since . Pain: Complains of pain in bodyaches. Neuro: Level of Consciousness is awake, alert, obeys commands, Oriented to person, place, time, situation. Cardiovascular: Patient's skin is warm and dry. Respiratory: Airway is patent Respiratory effort is even, unlabored, Respiratory pattern is regular, symmetrical. Respiratory: Reports cough that is. : No signs and/or symptoms were reported regarding the genitourinary system. 11:49 Reassessment: Received verbal order from Mickail to hold the NS fluids for now. 100% rb3 verbal read back. 12:00 Reassessment: Patient appears in no apparent distress at this time. No changes from rb3 previously documented assessment. 13:00 Reassessment: Patient appears in no apparent distress at this time. Patient and/or rb3 family updated on plan of care and expected duration. Pain level reassessed. Patient is alert, oriented x 3, equal unlabored respirations, skin warm/dry/pink. Playing on his tablet. 14:00 Reassessment: Patient appears in no apparent distress at this time. Pt. is watching TV. rb3 15:00 Reassessment: Patient appears in no apparent distress at this time. No changes from rb3 previously documented assessment. 16:00 Reassessment: Patient appears in no apparent distress at this time. Patient and/or rb3 family updated on plan of care and expected duration. Pain level reassessed. Patient is alert, oriented x 3, equal unlabored respirations, skin warm/dry/pink. 16:57 Reassessment: Pt. went to CT. rb3 18:00 Reassessment: Patient appears in no apparent distress at this time. Patient and/or rb3 family updated on plan of care and expected duration. Pain level reassessed. Patient is alert, oriented x 3, equal unlabored respirations, skin warm/dry/pink. Vital Signs: 10:32 BP 129 / 77; Pulse 68; Resp 18; Temp 98.4; Pulse Ox 98% ; Weight 90.72 kg; Height 5 ft. ll1 8 in. (172.72 cm); Pain 0/10; 12:00 BP 121 / 82; Pulse 64; Resp 17; Pulse Ox 97% ; rb3 13:00 BP 125 / 75; Pulse 64; Resp 19; Pulse Ox 98% ; rb3 15:55 BP 120 / 96; Pulse 64; Resp 18; Temp 100.3(O); Pulse Ox 97% ; rb3 16:55 BP 118 / 65; Pulse 62; Resp 25; Pulse Ox 95% ; rb3 17:55 BP 117 / 73; Pulse 62; Resp 14; Pulse Ox 97% ; rb3 18:24 BP 102 / 70; Pulse 60; Resp 21; Pulse Ox 97% ; rb3 10:32 Body Mass Index 30.41 (90.72 kg, 172.72 cm) ll1 ED Course: 10:20 Patient arrived in ED. bp1 10:36 Triage completed. ll1 10:43 Arm band placed on. ll1 10:56 Zoran Pierson PA is PHCP. jmm 10:56 Mart Barrera MD is Attending Physician. jmm 10:58 Patient placed. ll1 11:00 Patient has correct armband on for positive identification. Bed in low position. Call rb3 light in reach. Side rails up X 1. Pulse ox on. NIBP on. Warm blanket given. 11:06 Angelina Holt, RN is Primary Nurse. rb3 11:37 Inserted saline lock: 20 gauge in right antecubital area, using aseptic technique. rb3 Blood collected. 11:59 Chest Single View XRAY In Process Unspecified. EDMS 13:06 US Abdomen Limited In Process Unspecified. EDMS 13:30 Urine collected: clean catch specimen, jas colored. mb4 17:03 CT Abd/Pelvis - IV Contrast Only In Process Unspecified. EDMS 18:46 No provider procedures requiring assistance completed. IV discontinued, intact, rb3 bleeding controlled, No redness/swelling at site. Pressure dressing applied. Administered Medications: 15:55 Drug: Tylenol 650 mg Route: PO; rb3 16:30 Follow up: Response: No adverse reaction; Temperature is decreased rb3 18:22 Drug: Rocephin (cefTRIAXone) 1 grams Route: IV; Rate: calculated rate; Site: right rb3 antecubital; 18:40 Follow up: Response: No adverse reaction; IV Status: Completed infusion rb3 18:29 Not Given (Provider cancelled): NS 0.9% (30 ml/kg) 30 ml/kg IV at bolus once; Sepsis rb3 Protocol Outcome: 18:32 Discharge ordered by . jmpetty 18:46 Discharged to home ambulatory. rb3 18:46 Condition: stable 18:46 Discharge instructions given to patient, Instructed on discharge instructions, follow up and referral plans. medication usage, Demonstrated understanding of instructions, follow-up care, medications, Prescriptions given X 1. 18:47 Patient left the ED. rb3 Signatures: Dispatcher [employer] EDMS Zoran Pierson PA PA jmm Baxter, Mackenzie mb4 Neel Arreola, RN RN ll1 Soco Hunt Rebecca, RN RN rb3 Corrections: (The following items were deleted from the chart) 10:43 10:36 Arm band placed on Patient placed in an exam room, on a stretcher, ll1 ll1
--- NOTE | 2020-08-03 18:33 | EDPHYS ---
Physician Documentation [facility] Name: Mathieu Stoner Age: 70 yrs Sex: Male : 1950 Arrival Date: 08/03/2020 Time: 10:20 Bed 18 Private MD: ESTELLA Physician Mart Barrera HPI: 08/03 11:01 This 70 yrs old Male presents to ER via Ambulatory with complaints of Fever. jmm 11:01 Onset: The symptoms/episode began/occurred gradually, 2 day(s) ago. Modifying factors: jmm there are no obvious modifying factors. Associated signs and symptoms: Pertinent positives: cough, dysuria. The patient has not experienced similar symptoms in the past. This is a 70 year old male with a history of htn that presents to the ED with complaints of cough, fever, beginning approx 2 days ago. Denies vomiting, diarrhea. Patient states last night developing some difficulty urinating. Also complains of abdominal fullness. Historical: - Allergies: 10:36 No Known Allergies; ll1 - PMHx: 10:36 Hypertension; ll1 - PSHx: 10:36 pacemaker; multiple joint surgeries; ll1 - Immunization history:: Client reports receiving the 2nd dose of the Covid vaccine, Flu vaccine is up to date. - Social history:: Smoking status: Patient denies any tobacco usage or history of. ROS: 11:01 Constitutional: Positive for fever. jmm 11:01 Abdomen/GI: Positive for abdominal distention. 11:01 All other systems are negative. Exam: 11:01 Constitutional: This is a well developed, well nourished patient who is awake, alert, jmm and in no acute distress. Head/Face: atraumatic. Eyes: EOMI, no conjunctival erythema appreciated ENT: Moist Mucus Membranes Neck: Trachea midline, Supple Chest/axilla: Normal chest wall appearance and motion. Cardiovascular: Regular rate and rhythm. No edema appreciated Respiratory: Normal respirations, no respiratory distress appreciated Abdomen/GI: Non distended, soft Back: Normal ROM Skin: General appearance color normal MS/ Extremity: Moves all extremities, no obvious deformities appreciated, no edema noted to the lower extremities Neuro: Awake and alert, normal gait Psych: Behavior is normal, Mood is normal, Patient is cooperative and pleasant Vital Signs: 10:32 BP 129 / 77; Pulse 68; Resp 18; Temp 98.4; Pulse Ox 98% ; Weight 90.72 kg; Height 5 ft. ll1 8 in. (172.72 cm); Pain 0/10; 12:00 BP 121 / 82; Pulse 64; Resp 17; Pulse Ox 97% ; rb3 13:00 BP 125 / 75; Pulse 64; Resp 19; Pulse Ox 98% ; rb3 15:55 BP 120 / 96; Pulse 64; Resp 18; Temp 100.3(O); Pulse Ox 97% ; rb3 16:55 BP 118 / 65; Pulse 62; Resp 25; Pulse Ox 95% ; rb3 17:55 BP 117 / 73; Pulse 62; Resp 14; Pulse Ox 97% ; rb3 18:24 BP 102 / 70; Pulse 60; Resp 21; Pulse Ox 97% ; rb3 10:32 Body Mass Index 30.41 (90.72 kg, 172.72 cm) ll1 MDM: 11:[address] [facility] 18:30 Data reviewed: vital signs, nurses notes. Counseling: I had a detailed discussion with [facility] the patient and/or guardian regarding: the historical points, exam findings, and any diagnostic results supporting the discharge/admit diagnosis, lab results, radiology results, the need for outpatient follow up, to return to the emergency department if symptoms worsen or persist or if there are any questions or concerns that arise at home. ED course: Patient is alert and and non toxic in appearance in the ED. UA is concerning for infection will treat with oral abx. Patient is otherwise given strict return precautions. patient understood and agrees with the plan of care. . 08/03 11:07 Order name: Amylase, Serum [facility] 08/03 11:07 Order name: Basic Metabolic Panel [facility] 08/03 11:07 Order name: Blood Culture Adult (2) [facility] 08/03 11:07 Order name: CBC with Diff; Complete Time: 12:08 [facility] 08/03 11:07 Order name: Ckmb; Complete Time: 12:15 [facility] 08/03 11:07 Order name: CPK; Complete Time: 12:15 [facility] 08/03 11:07 Order name: Lactate; Complete Time: 12:11 [facility] 08/03 11:07 Order name: LFT's; Complete Time: 12:15 [facility] 08/03 11:07 Order name: Lipase; Complete Time: 12:15 [facility] 08/03 11:07 Order name: Procalcitonin; Complete Time: 12:44 [facility] 08/03 11:07 Order name: Protime (+inr); Complete Time: 12:09 [facility] 08/03 11:07 Order name: Ptt, Activated; Complete Time: 12:09 [facility] 08/03 11:07 Order name: Troponin (emerg Dept Use Only); Complete Time: 12:15 [facility] 08/03 11:07 Order name: Urine Microscopic Only; Complete Time: 16:30 [facility] 08/03 11:07 Order name: Chest Single View XRAY; Complete Time: 12:08 [facility] 08/03 11:07 Order name: Amylase; Complete Time: 12:15 [facility] 08/03 11:07 Order name: Basic Metabolic Panel; Complete Time: 12:15 [facility] 08/03 11:07 Order name: Blood Culture [facility] 08/03 11:58 Order name: COVID-19 : Document "Date of Symptom Onset" if Symptomatic. [facility] 08/03 12:16 Order name: US Abdomen Limited; Complete Time: 13:33 [facility] 08/03 13:32 Order name: COVID-19/FLU A+B; Complete Time: 13:33 [facility] 08/03 15:10 Order name: Urine Dipstick-Ancillary [facility] 08/03 15:24 Order name: CT Abd/Pelvis - IV Contrast Only; Complete Time: 17:53 [facility] 08/03 16:19 Order name: Urine Culture [facility] 08/03 11:07 Order name: Cardiac monitoring; Complete Time: 12:19 [facility] 08/03 11:07 Order name: EKG - Nurse/Tech; Complete Time: 12:19 [facility] 08/03 11:07 Order name: IV Saline Lock - Large Bore; Complete Time: 11:44 [facility] 08/03 11:07 Order name: Labs collected and sent; Complete Time: 11:44 [facility] 08/03 11:07 Order name: O2 Per Protocol; Complete Time: 11:44 [facility] 08/03 11:07 Order name: O2 Sat Monitoring; Complete Time: 11:44 [facility] 08/03 11:07 Order name: Urine Dipstick-Ancillary (obtain specimen); Complete Time: 16:58 [facility] Administered Medications: 15:55 Drug: Tylenol 650 mg Route: PO; rb3 16:30 Follow up: Response: No adverse reaction; Temperature is decreased rb3 18:22 Drug: Rocephin (cefTRIAXone) 1 grams Route: IV; Rate: calculated rate; Site: right rb3 antecubital; 18:40 Follow up: Response: No adverse reaction; IV Status: Completed infusion rb3 18:29 Not Given (Provider cancelled): NS 0.9% (30 ml/kg) 30 ml/kg IV at bolus once; Sepsis rb3 Protocol Disposition: 08/04 07:22 Co-signature as Attending Physician, Matr Barrera MD I agree with the assessment and [facility] plan of care. Disposition: 08/03/20 18:32 Discharged to Home. Impression: Urinary tract infection, site not specified, Fever, unspecified. - Condition is Stable. - Discharge Instructions: Urinary Tract Infection, Adult. - Prescriptions for cefpodoxime 200 mg Oral Tablet - take 1 tablet by ORAL route every 12 hours for 10 days with food; 20 tablet. - Medication Reconciliation Form, Thank You Letter, Antibiotic Education, Prescription Opioid Use form. - Follow up: Private Physician; When: 2 - 3 days; Reason: Recheck today's complaints, Continuance of care, Re-evaluation by your physician. Signatures: Dispatcher [employer] EDMO Mart Barrera MD MD cha Mickail, Joel, PA PA jmm Lewis, Lynsay, RN RN ll1 Angelina Holt, RN RN rb3 Corrections: (The following items were deleted from the chart) 08/03 12:43 11:59 CORONAVIRUS ordered. [facility] 12:44 11:48 Influenza Screen (A \\T\\ B)+BA.LAB.BRZ ordered. [facility] 13:38 11:07 Accucheck ordered. [facility] rb3 18:47 18:32 08/03/2020 18:32 Discharged to Home. Impression: Urinary tract infection, site rb3 not specified; Fever, unspecified. Condition is Stable. Forms are Medication Reconciliation Form, Thank You Letter, Antibiotic Education, Prescription Opioid Use. Follow up: Private Physician; When: 2 - 3 days; Reason: Recheck today's complaints, Continuance of care, Re-evaluation by your physician. petty
[2020-08-03] MEDS ORDERED: CEFTRIAXONE/SWI 1gm 1 GM/10 ML SYR ONE (18:34)
[2020-08-03 18:59] VITALS: TEMP 100.3
[2020-08-03 19:01] VITALS: O2SAT 97
[2020-08-03 19:03] VITALS: BP 102/70
--- NOTE | 2020-08-06 12:06 | EKG ---
Test Date: 2020-08-03 Test Time: 12:07:31 Occupational Therapy Asst: CARLITO MEASUREMENT RESULTS: Intervals: Rate: 65 ID: QRSD: [id number] QT: 386 QTc: 401 Elbert: P: ID: [id number]: [id number] T: 28 INTERPRETIVE STATEMENTS: Electronic atrial pacemaker Cannot rule out Anterior infarct, age undetermined Abnormal ECG No previous ECG available for comparison Electronically Signed On 08-06-20 11:55:13 CDT by Milind Rodriguez
== END 2020-08-03 18:47 | disposition home or self-care (01) ==
LOC: ER 10:15
DX: N39.0 Urinary tract infection, site not specified (principal); I10 Essential (primary) hypertension; Z20.822 Contact with and (suspected) exposure to COVID-19; Z95.0 Presence of cardiac pacemaker
CPT/HCPCS: 96365; 93005; 87040 ×2; 87088; 85025; 87086; 80048; 36415; 82150; 82550; 85610; 80076; 83605; 85730; 84484; 82553; 83690; 84145; 0240U; 74177; 71045; 76705; 99284; Q9967; J0696; 81003; 81015; J7030